=== PATIENT | female | born 1975 ===

== ENCOUNTER → 2020-03-18 10:54 | Outpatient (BNVA) | payer SELFPAY | PROVIDERS: Visit Provider Obstetrics & Gynecology | DX: Z76.89 Persons encountering health services in other specified circumstances (principal) ==

== ENCOUNTER → 2020-04-01 11:48 | Outpatient (BNVA) | payer OTHER, SELFPAY | PROVIDERS: Visit Provider Student in an Organized Health Care Education/Training Program | DX: Z76.89 Persons encountering health services in other specified circumstances (principal) ==

== ENCOUNTER → 2020-08-12 13:10 | Outpatient (BNVA) | payer OTHER, SELFPAY | PROVIDERS: PCP Internal Medicine; Visit Provider Obstetrics & Gynecology ==

== ENCOUNTER 2020-09-03 08:33 | Outpatient (REF) | payer OTHER, SELFPAY ==
--- NOTE | ~2020-09-03 | XR_ITS ---
EXAMINATION: XR CHEST CLINICAL INFORMATION: Preprocedure chest x-ray COMPARISON: Previous chest x-ray June 2012 TECHNIQUE: 2 views of the chest were obtained. FINDINGS: No significant abnormality is noted involving the heart, lungs, mediastinum, bony thorax or soft tissues. XR/XR chest 2V IMPRESSION: Unremarkable examination.
--- NOTE | 2020-09-03 08:44 | ECG_ITS ---
Test Reason : PRE-OP Z01.818 Blood Pressure : / mmHG Vent. Rate : 079 BPM Atrial Rate : 079 BPM P-R Int : 134 ms QRS Dur : 098 ms QT Int : 380 ms P-R-T Axes : 024 009 025 degrees QTc Int : 435 ms Normal sinus rhythm Normal ECG When compared with ECG of 03-JUL-2012 10:27, No significant change was found Referred By: Shandra Muro Electronically Signed By:REBEKAH PAUL MD
[2020-09-03 10:22] LABS: MANUAL DIFF FLAG NO
[2020-09-03 10:38] LABS: Basophils Percent Auto 0.7 % (0-2); Eosinophils Absolute Auto 0.1 X10*3/uL (0.0-0.4); Eosinophils Percent Auto 1.6 % (0-4); Hematocrit 36.4 % (37-47); Hemoglobin 11.2 g/dl (12.0-16.0); Imm Gran Abs Auto 0.02 X10*3/uL (0.00-0.03); Imm Gran Pct Auto 0.3 % (0.0-0.4); Lymphocytes Absolute Auto 1.9 X10*3/uL (1.2-4.9); Lymphocytes Percent Auto 30.5 % (20-40); Mean Corpuscular HGB Conc 30.8 g/dl (31.0-35.0); Mean Corpuscular Hemoglobin 24.6 pg (27.0-33.0); Mean Corpuscular Volume 79.8 fL (80-98); Monocytes Absolute Auto 0.6 X10*3/uL (0.1-1.2); Monocytes Percent Auto 10.5 % (2-11); Neutrophils Absolute Auto 3.4 X10*3/uL (2.0-8.3); Neutrophils Percent Auto 56.4 % (45-73); Platelet Count 372 X10*3/uL (160-400); Red Blood Count 4.56 X10*6/uL (4.20-5.50); Red Cell Distribution Width 22.8 % (11.0-16.0); White Blood Count 6.1 X10*3/uL (4.8-10.8)
[2020-09-03 10:40] LABS: Partial Thromboplastin Time 36.3 SEC (24.1-38.0)
[2020-09-03 10:46] LABS: Glucose Urine UA NEG (NEG); Leukocyte Esterase Urine NEG (NEG); Nitrite Urine NEG (NEG); Specific Gravity - Urine >= 1.030 (1.005-1.025); Urine Blood NEG (NEG); Urine Ketones NEG (NEG); Urine Protein NEG (NEG-TRACE)
[2020-09-03 10:49] LABS: Alanine Aminotransferase 17 U/L (0-31); Albumin Level 3.9 g/dL (3.5-5.0); Alkaline Phosphatase 63 U/L (39-117); Anion Gap 12 (12-20); Aspartate Amino Transferase 16 U/L (5-31); Bilirubin Total 0.4 mg/dL (0.0-1.0); Blood Urea Nitrogen 12 mg/dL (9-16); Calcium 8.8 mg/dL (8.4-10.2); Carbon Dioxide 25 mmol/L (22-29); Chloride 107 mmol/L (96-108); Estimated Glomerular Filt Rate > 60; Glucose Fasting 79 mg/dL (60-99); Sodium 140 mmol/L (135-145); Total Protein 6.6 g/dL (6.5-8.0)
[2020-09-03 10:53] LABS: Appearance Urine HAZY; Color Urine YELLOW
[2020-09-03 11:09] LABS: HIV AB/AG Nonreactive (Nonreactive); HIV Num 1 0.08 S/CO (0.00-0.99)
[2020-09-03 11:45] LABS: Estimated Average Glucose 91 mg/dL; Hemoglobin A1c % 4.8 %
[2020-09-03 12:35] LABS: HCG Quantitative < 2 mIU/mL
[2020-09-03 12:46] LABS: Thyroid Stimulating Hormone 0.91 uIU/mL (0.32-4.0)
[2020-09-04 08:41] LABS: Triiodothyronine T3 Total 110 ng/dL (76-181)
[2020-09-04 12:46] LABS: Absolute CD3 Count 1410 cells/uL (840-3060); Absolute CD4 Count 938 cells/uL (490-1740); Absolute CD8 Count 436 cells/uL (180-1170); Absolute Lymphocytes 1906 cells/uL (850-3900); CD4 CD8 Ratio 2.15 (0.86-5.00); Percent CD3 Cells 74 % (57-85); Percent CD4 Cells 49 % (30-61); Percent CD8 Cells 23 % (12-42)
== END 2020-09-03 08:34 | disposition home or self-care (01) ==
LOC: HO.LAB 08:33
PROVIDERS: PCP Internal Medicine; Visit Provider Internal Medicine
DX: Z01.818 Encounter for other preprocedural examination (principal)
CPT/HCPCS: 36415; 71046; 80053; 81003; 83036; 84436; 84443; 84480; 84702; 85025; 85610; 85730; 86359; 86360; 87389; 93005

== ENCOUNTER 2020-10-23 15:32 | Outpatient (REF) | payer OTHER, SELFPAY ==
--- NOTE | ~2020-10-23 | US_ITS ---
EXAMINATION: PELVIC ULTRASOUND CLINICAL INFORMATION: Leiomyoma of uterus COMPARISON: Previous pelvic ultrasounds most recent December 2019 TECHNIQUE: Transabdominal and transvaginal pelvic ultrasound was performed. Transvaginal exam was performed for better visualization of the uterus and ovaries. FINDINGS: The uterus is anteverted and measures 12.8 x 7.8 x 9.8 cm in dimension. There are 2 uterine fibroids. These measure 4.1 x 3.4 x 3 cm intramural or subserosal to the posterior lower uterine segment. This measured 3.7 x 3.1 x 2.9 cm on previous exam. The second fibroid measures 4.1 x 3.4 x 3 cm compared to 3.7 x 3.1 x 2.9 cm. This is intramural/submucosal in the high posterior uterine body. The endometrium is not well visualized secondary to fibroids. Endometrial thickness is estimated at 0.9 cm. The ovaries are normal-appearing. The right ovary measures 2.4 x 2 x 1.7 cm. The left ovary measures 3.2 x 1.9 x 2.6 cm. There is no fluid in the pelvis. US/US pelvic complete IMPRESSION: 2 uterine fibroids not appreciably changed from previous exam.
--- NOTE | ~2020-10-23 | US_ITS ---
EXAMINATION: PELVIC ULTRASOUND CLINICAL INFORMATION: Leiomyoma of uterus COMPARISON: Previous pelvic ultrasounds most recent December 2019 TECHNIQUE: Transabdominal and transvaginal pelvic ultrasound was performed. Transvaginal exam was performed for better visualization of the uterus and ovaries. FINDINGS: The uterus is anteverted and measures 12.8 x 7.8 x 9.8 cm in dimension. There are 2 uterine fibroids. These measure 4.1 x 3.4 x 3 cm intramural or subserosal to the posterior lower uterine segment. This measured 3.7 x 3.1 x 2.9 cm on previous exam. The second fibroid measures 4.1 x 3.4 x 3 cm compared to 3.7 x 3.1 x 2.9 cm. This is intramural/submucosal in the high posterior uterine body. The endometrium is not well visualized secondary to fibroids. Endometrial thickness is estimated at 0.9 cm. The ovaries are normal-appearing. The right ovary measures 2.4 x 2 x 1.7 cm. The left ovary measures 3.2 x 1.9 x 2.6 cm. There is no fluid in the pelvis. US/US transvaginal IMPRESSION: 2 uterine fibroids not appreciably changed from previous exam.
== END 2020-10-23 15:33 | disposition home or self-care (01) ==
LOC: HO.US 15:32
PROVIDERS: Visit Provider Obstetrics & Gynecology
DX: D25.9 Leiomyoma of uterus, unspecified (principal)
CPT/HCPCS: 76830; 76856

== ENCOUNTER → 2020-11-06 12:52 | Outpatient (BNVA) | payer OTHER, SELFPAY | PROVIDERS: PCP Internal Medicine; Visit Provider Obstetrics & Gynecology ==

== ENCOUNTER 2020-11-14 14:26 | Outpatient (REF) | payer OTHER, SELFPAY ==
[2020-11-14 14:49] LABS: MANUAL DIFF FLAG NO
[2020-11-14 14:52] LABS: Basophils Percent Auto 0.5 % (0-2); Eosinophils Absolute Auto 0.2 X10*3/uL (0.0-0.4); Eosinophils Percent Auto 2.3 % (0-4); Hematocrit 39.5 % (37-47); Hemoglobin 13.3 g/dl (12.0-16.0); Imm Gran Abs Auto 0.01 X10*3/uL (0.00-0.03); Imm Gran Pct Auto 0.1 % (0.0-0.4); Lymphocytes Absolute Auto 2.6 X10*3/uL (1.2-4.9); Lymphocytes Percent Auto 31.5 % (20-40); Mean Corpuscular HGB Conc 33.7 g/dl (31.0-35.0); Mean Corpuscular Hemoglobin 28.4 pg (27.0-33.0); Mean Corpuscular Volume 84.4 fL (80-98); Mean Platelet Volume 9.4 fL (9.4-12.3); Monocytes Absolute Auto 0.7 X10*3/uL (0.1-1.2); Monocytes Percent Auto 8.7 % (2-11); Neutrophils Absolute Auto 4.8 X10*3/uL (2.0-8.3); Neutrophils Percent Auto 56.9 % (45-73); Platelet Count 336 X10*3/uL (160-400); Red Blood Count 4.68 X10*6/uL (4.20-5.50); Red Cell Distribution Width 15.9 % (11.0-16.0); White Blood Count 8.4 X10*3/uL (4.8-10.8)
[2020-11-14 15:20] LABS: Alanine Aminotransferase 16 U/L (0-31); Alkaline Phosphatase 68 U/L (39-117); Anion Gap 10 (12-20); Aspartate Amino Transferase 18 U/L (5-31); Bilirubin Total 0.2 mg/dL (0.0-1.0); Blood Urea Nitrogen 11 mg/dL (9-16); Calcium 9.4 mg/dL (8.4-10.2); Carbon Dioxide 25 mmol/L (22-29); Chloride 108 mmol/L (96-108); Estimated Glomerular Filt Rate > 60; Glucose Random 105 mg/dL (60-115); Potassium 4.1 mmol/L (3.3-5.1); Sodium 139 mmol/L (135-145); Total Protein 6.8 g/dL (6.5-8.0)
[2020-11-14 15:42] LABS: HCG Quantitative < 2 mIU/mL; TSH reflex Free T4 0.93 uIU/mL (0.32-4.0)
== END 2020-11-14 14:27 | disposition home or self-care (01) ==
LOC: HO.LAB 14:26
PROVIDERS: Absent Provider Obstetrics & Gynecology; PCP Internal Medicine; Visit Provider Internal Medicine
DX: Z01.818 Encounter for other preprocedural examination (principal); N93.9 Abnormal uterine and vaginal bleeding, unspecified; D50.9 Iron deficiency anemia, unspecified
CPT/HCPCS: 36415; 80053; 84443; 84702; 85025; 85027

== ENCOUNTER 2020-11-25 14:40 | Outpatient (REF) | payer OTHER, SELFPAY ==
--- NOTE | 2020-11-25 14:45 | ECG_ITS ---
Test Reason : PREOP Blood Pressure : / mmHG Vent. Rate : 076 BPM Atrial Rate : 076 BPM P-R Int : 132 ms QRS Dur : 088 ms QT Int : 380 ms P-R-T Axes : 028 -03 016 degrees QTc Int : 427 ms Normal sinus rhythm Normal ECG When compared with ECG of 03-SEP-2020 08:52, No significant change was found Referred By: Donato Flynn Electronically Signed By:REBEKAH PAUL MD
[2020-11-25 15:25] LABS: MANUAL DIFF FLAG NO
[2020-11-25 15:28] LABS: Basophils Absolute Auto 0.1 X10*3/uL (0.0-0.2); Basophils Percent Auto 0.6 % (0-2); Eosinophils Absolute Auto 0.2 X10*3/uL (0.0-0.4); Eosinophils Percent Auto 1.6 % (0-4); Hematocrit 39.1 % (37-47); Hemoglobin 13.1 g/dl (12.0-16.0); Imm Gran Abs Auto 0.05 X10*3/uL (0.00-0.03); Imm Gran Pct Auto 0.5 % (0.0-0.4); Lymphocytes Absolute Auto 3.1 X10*3/uL (1.2-4.9); Mean Corpuscular HGB Conc 33.5 g/dl (31.0-35.0); Mean Corpuscular Hemoglobin 28.7 pg (27.0-33.0); Mean Corpuscular Volume 85.7 fL (80-98); Mean Platelet Volume 9.8 fL (9.4-12.3); Monocytes Absolute Auto 0.9 X10*3/uL (0.1-1.2); Monocytes Percent Auto 9.5 % (2-11); Neutrophils Absolute Auto 5.1 X10*3/uL (2.0-8.3); Neutrophils Percent Auto 54.8 % (45-73); Platelet Count 356 X10*3/uL (160-400); Red Blood Count 4.56 X10*6/uL (4.20-5.50); Red Cell Distribution Width 14.8 % (11.0-16.0); White Blood Count 9.3 X10*3/uL (4.8-10.8)
[2020-11-25 15:33] LABS: Prothrombin Time 11.2 SEC (9.9-13.0)
[2020-11-25 15:36] LABS: Partial Thromboplastin Time 35.7 SEC (24.1-38.0)
[2020-11-25 15:46] LABS: Alanine Aminotransferase 32 U/L (0-31); Albumin Level 4.1 g/dL (3.5-5.0); Alkaline Phosphatase 67 U/L (39-117); Anion Gap 10 (12-20); Aspartate Amino Transferase 25 U/L (5-31); Bilirubin Total 0.3 mg/dL (0.0-1.0); Blood Urea Nitrogen 15 mg/dL (9-16); Calcium 9.5 mg/dL (8.4-10.2); Carbon Dioxide 27 mmol/L (22-29); Chloride 106 mmol/L (96-108); Estimated Glomerular Filt Rate > 60; Glucose Random 92 mg/dL (60-115); Potassium 4.4 mmol/L (3.3-5.1); Sodium 139 mmol/L (135-145)
[2020-11-26 08:14] LABS: HIV AB/AG Nonreactive (Nonreactive); HIV Num 1 0.06 S/CO (0.00-0.99)
== END 2020-11-25 14:41 | disposition home or self-care (01) ==
LOC: HO.LAB 14:40
PROVIDERS: PCP Internal Medicine; Visit Provider Internal Medicine
DX: Z01.818 Encounter for other preprocedural examination (principal)
CPT/HCPCS: 36415; 80053; 85025; 85610; 85730; 87389; 93005

== ENCOUNTER 2020-12-30 14:30 | Outpatient (REF) | payer OTHER, SELFPAY ==
[2020-12-31 01:26] LABS: CT PCR NOT DETECTED (Not Detect.); NG PCR NOT DETECTED (Not Detect.)
[2021-01-01 16:37] LABS: HPV mRNA E6/E7 rflx Not Detected (Not Detected)
== END 2020-12-30 14:31 | disposition home or self-care (01) ==
LOC: HO.LAB 14:30
PROVIDERS: PCP Internal Medicine; Visit Provider Obstetrics & Gynecology
DX: Z01.411 Encounter for gynecological examination (general) (routine) with abnormal findings (principal); Z11.51 Encounter for screening for human papillomavirus (HPV); Z11.3 Encounter for screening for infections with a predominantly sexual mode of transmission; N92.1 Excessive and frequent menstruation with irregular cycle
CPT/HCPCS: 58100; 87491; 87591; 87624; 88142; 88305

== ENCOUNTER → 2021-01-14 11:40 | Outpatient (BNVA) | payer OTHER, SELFPAY | PROVIDERS: PCP Internal Medicine; Visit Provider Obstetrics & Gynecology ==

== ENCOUNTER → 2021-03-23 15:41 | Outpatient (BNVA) | payer OTHER, SELFPAY | PROVIDERS: PCP Internal Medicine; Visit Provider Obstetrics & Gynecology ==

== ENCOUNTER 2021-06-30 11:07 | Outpatient (REF) | payer OTHER, SELFPAY ==
[2021-06-30 11:33] LABS: MANUAL DIFF FLAG NO
[2021-06-30 12:23] LABS: Basophils Percent Auto 0.5 % (0-2); Eosinophils Absolute Auto 0.1 X10*3/uL (0.0-0.4); Eosinophils Percent Auto 1.6 % (0-4); Hematocrit 36.8 % (37.0-47.0); Hemoglobin 11.9 g/dl (12.0-16.0); Imm Gran Abs Auto 0.03 X10*3/uL (0.00-0.03); Imm Gran Pct Auto 0.5 % (0.0-0.4); Lymphocytes Absolute Auto 2.1 X10*3/uL (1.2-4.9); Lymphocytes Percent Auto 33.9 % (20-40); Mean Corpuscular HGB Conc 32.3 g/dl (31.0-35.0); Mean Corpuscular Hemoglobin 28.5 pg (27.0-33.0); Mean Corpuscular Volume 88.2 fL (80.0-98.0); Mean Platelet Volume 10.2 fL (9.4-12.3); Monocytes Absolute Auto 0.6 X10*3/uL (0.1-1.2); Neutrophils Absolute Auto 3.4 x10*3/uL (2.0-8.3); Neutrophils Percent Auto 54.5 % (45-73); Platelet Count 322 X10*3/uL (160-400); Red Blood Count 4.17 X10*6/uL (4.20-5.50); Red Cell Distribution Width 14.5 % (11.0-16.0); White Blood Count 6.2 X10*3/uL (4.8-10.8)
[2021-06-30 13:05] LABS: Appearance Urine HAZY; Color Urine YELLOW; Glucose Urine UA NEG (NEG); Leukocyte Esterase Urine NEG (NEG); Nitrite Urine NEG (NEG); Specific Gravity - Urine 1.025 (1.005-1.025); UACC Culture Trigger NO; Urine Blood 1+ (NEG); Urine Ketones NEG (NEG); Urine Protein NEG (NEG-TRACE)
[2021-06-30 13:05] LABS: Alanine Aminotransferase 18 U/L (0-31); Albumin Level 3.8 g/dL (3.5-5.0); Alkaline Phosphatase 65 U/L (39-117); Anion Gap 10 (12-20); Aspartate Amino Transferase 15 U/L (5-31); Bilirubin Total 0.4 mg/dL (0.0-1.0); Blood Urea Nitrogen 13 mg/dL (9-16); Calcium 9.4 mg/dL (8.4-10.2); Carbon Dioxide 25 mmol/L (22-29); Chloride 107 mmol/L (96-108); Cholesterol 155 mg/dL; Estimated Glomerular Filt Rate > 60; Glucose Fasting 88 mg/dL (60-99); HDL Cholesterol 39 mg/dL; Iron 52 mcg/dL (30-160); LDL Cholesterol Calculated 92 mg/dl; Potassium 4.2 mmol/L (3.3-5.1); Sodium 138 mmol/L (135-145); Total Protein 6.6 g/dL (6.5-8.0); Triglycerides 122 mg/dL
[2021-06-30 13:07] LABS: Erythrocyte Sedimentation Rate 11 MM/HR (0-20)
[2021-06-30 13:10] LABS: TSH reflex Free T4 0.88 uIU/mL (0.32-4.0)
[2021-06-30 13:35] LABS: Percent Iron Saturation 16 % (15-50); Total Iron Binding Capacity 327 mcg/dL (228-428); Unsaturated Iron Binding 275 ug/dL
[2021-06-30 14:16] LABS: Bacteria Urine TRACE /LPF; Mucus Urine 2+ /LPF; Squamous Epithelial Cell Urine 1+ /LPF; WBC Urine 0-2 /HPF (0-4)
== END 2021-06-30 11:08 | disposition home or self-care (01) ==
LOC: HO.LAB 11:07
PROVIDERS: PCP Internal Medicine; Visit Provider Internal Medicine
DX: Z00.00 Encounter for general adult medical examination without abnormal findings (principal); E55.9 Vitamin D deficiency, unspecified; D50.9 Iron deficiency anemia, unspecified; M79.7 Fibromyalgia
CPT/HCPCS: 36415; 80053; 80061; 81001; 81003; 82306; 83540; 84443; 85025; 85652

== ENCOUNTER 2021-07-06 09:52 | Outpatient (REF) | payer OTHER, SELFPAY ==
[2021-07-06 15:11] LABS: CT PCR NOT DETECTED (Not Detect.); NG PCR NOT DETECTED (Not Detect.)
[2021-07-07 13:02] LABS: BV Int Neg Control Negative (Negative); BV Int Pos Control Positive (Positive)
== END 2021-07-06 09:53 | disposition home or self-care (01) ==
LOC: HO.LAB 09:52
PROVIDERS: PCP Internal Medicine; Visit Provider Obstetrics & Gynecology
DX: N76.0 Acute vaginitis (principal); B96.89 Other specified bacterial agents as the cause of diseases classified elsewhere; D25.9 Leiomyoma of uterus, unspecified
CPT/HCPCS: 87480; 87491; 87510; 87591; 87660; 99212

== ENCOUNTER 2021-08-18 14:43 | Outpatient (REF) | payer OTHER, SELFPAY ==
--- NOTE | 2021-08-18 15:01 | ECG_ITS ---
Test Reason : preop Blood Pressure : / mmHG Vent. Rate : 074 BPM Atrial Rate : 074 BPM P-R Int : 142 ms QRS Dur : 090 ms QT Int : 396 ms P-R-T Axes : 024 008 018 degrees QTc Int : 439 ms Normal sinus rhythm Normal ECG When compared with ECG of 25-NOV-2020 14:48, No significant change was found Referred By: Donato Flynn Electronically Signed By:REBEKAH PAUL MD
[2021-08-18 15:02] LABS: MANUAL DIFF FLAG NO
[2021-08-18 15:31] LABS: Basophils Percent Auto 0.5 % (0-2); Eosinophils Absolute Auto 0.1 X10*3/uL (0.0-0.4); Eosinophils Percent Auto 1.7 % (0-4); Hematocrit 36.9 % (37.0-47.0); Hemoglobin 12.7 g/dl (12.0-16.0); Imm Gran Abs Auto 0.03 X10*3/uL (0.00-0.03); Imm Gran Pct Auto 0.4 % (0.0-0.4); Lymphocytes Absolute Auto 2.1 X10*3/uL (1.2-4.9); Lymphocytes Percent Auto 25.5 % (20-40); Mean Corpuscular HGB Conc 34.4 g/dl (31.0-35.0); Mean Corpuscular Hemoglobin 29.5 pg (27.0-33.0); Mean Corpuscular Volume 85.8 fL (80.0-98.0); Mean Platelet Volume 9.8 fL (9.4-12.3); Monocytes Absolute Auto 0.7 X10*3/uL (0.1-1.2); Monocytes Percent Auto 8.5 % (2-11); Neutrophils Absolute Auto 5.3 x10*3/uL (2.0-8.3); Neutrophils Percent Auto 63.4 % (45-73); Platelet Count 344 X10*3/uL (160-400); Red Cell Distribution Width 14.7 % (11.0-16.0); White Blood Count 8.3 X10*3/uL (4.8-10.8)
[2021-08-18 15:37] LABS: INTERNATIONAL NORM RATIO 1.1 (0.9-1.1)
[2021-08-18 15:40] LABS: Partial Thromboplastin Time 36.8 SEC (24.1-38.0)
[2021-08-18 16:02] LABS: Alanine Aminotransferase 18 U/L (0-31); Albumin Level 4.1 g/dL (3.5-5.0); Alkaline Phosphatase 75 U/L (39-117); Anion Gap 11 (12-20); Aspartate Amino Transferase 18 U/L (5-31); Bilirubin Total 0.4 mg/dL (0.0-1.0); Blood Urea Nitrogen 14 mg/dL (9-16); Calcium 9.5 mg/dL (8.4-10.2); Carbon Dioxide 24 mmol/L (22-29); Chloride 106 mmol/L (96-108); Estimated Glomerular Filt Rate > 60; Glucose Random 80 mg/dL (60-115); Potassium 4.1 mmol/L (3.3-5.1); Sodium 137 mmol/L (135-145); Total Protein 7.3 g/dL (6.5-8.0)
[2021-08-18 16:09] LABS: HCG Quantitative < 2 mIU/mL
[2021-08-18 16:16] LABS: Appearance Urine HAZY; Color Urine YELLOW; Glucose Urine UA NEG (NEG); Leukocyte Esterase Urine NEG (NEG); Nitrite Urine NEG (NEG); PH 6.5 (5.0-8.0); Specific Gravity - Urine 1.015 (1.005-1.025); UACC Culture Trigger NO; Urine Blood 3+ (NEG); Urine Ketones NEG (NEG); Urine Protein NEG (NEG-TRACE)
[2021-08-18 16:26] LABS: Bacteria Urine 1+ /LPF; Squamous Epithelial Cell Urine 1+ /LPF; WBC Urine 0 /HPF (0-4)
[2021-08-18 16:27] LABS: RBC Urine 50-75 /HPF (0)
[2021-08-19 07:59] LABS: HBsAGNum1 0.15 S/CO (0.00-0.99); HIV AB/AG Nonreactive (Nonreactive); HIV Num 1 0.08 S/CO (0.00-0.99); Hepatitis B Surface Antigen Negative (Negative); ~HepC Num1 0.09 S/CO (0.00-0.79); ~Hepatitis C Antibody Nonreactive (Nonreactive)
[2021-08-19 08:12] LABS: Syphilis Screen Nonreactive (Nonreactive)
== END 2021-08-18 14:44 | disposition home or self-care (01) ==
LOC: HO.LAB 14:43
PROVIDERS: Obstetrics & Gynecology; PCP Internal Medicine; Visit Provider Internal Medicine
DX: Z01.818 Encounter for other preprocedural examination (principal); Z11.4 Encounter for screening for human immunodeficiency virus [HIV]; I10 Essential (primary) hypertension; B96.89 Other specified bacterial agents as the cause of diseases classified elsewhere; N76.0 Acute vaginitis
CPT/HCPCS: 36415; 80053; 81001; 84702; 85025; 85610; 85730; 86780; 86803; 87340; 87389; 93005

== ENCOUNTER 2021-08-20 11:43 | Outpatient (REF) | payer OTHER, SELFPAY ==
--- NOTE | ~2021-08-20 | US_ITS ---
EXAMINATION: US PELVIS CLINICAL INFORMATION: Leiomyoma of the uterus. COMPARISON: None TECHNIQUE: Ultrasound of the pelvis is performed using both transabdominal and transvaginal transducers along with Doppler. Transvaginal imaging is performed due to inadequate visualization transabdominally. FINDINGS: Uterus: The uterus is anteverted, anteflexed and measures 12.1 x 7.8 x 11.0 cm. The double wall endometrial thickness is 0.3 cm. It is difficult to visualize due to fibroids. The uterus is smooth in contour and has normal myometrial echogenicity. There are 2 hypoechoic lesions: 1. Lesion in the lower posterior body of the uterus measures 2.9 x 2.9 x 3.4 cm. Previously, it measured 4.1 x 3.4 x 3.0 cm. 2. Lesion in the upper posterior body of the uterus almost at the fundus. It measures 7.5 x 6.9 x 8.0 cm. Previously it measured 6.6 x 6.3 x 6.7 cm. There are small nabothian cysts in the cervix. Adnexa: Both ovaries are not visualized. There is no free fluid in the cul-de-sac. US/US pelvic and transvaginal IMPRESSION: 2 uterine fibroids. Small nabothian cysts in the cervix. The ovaries are not visualized.
== END 2021-08-20 11:44 | disposition home or self-care (01) ==
LOC: HO.US 11:43
PROVIDERS: PCP Internal Medicine; Visit Provider Obstetrics & Gynecology
DX: D25.9 Leiomyoma of uterus, unspecified (principal)
CPT/HCPCS: 76830; 76856

== ENCOUNTER → 2021-08-31 16:04 | Outpatient (BNVA) | payer OTHER, SELFPAY | PROVIDERS: PCP Internal Medicine; Visit Provider Obstetrics & Gynecology | DX: D25.9 Leiomyoma of uterus, unspecified (principal) ==

== ENCOUNTER 2022-05-25 09:34 | Outpatient (REF) | payer OTHER, SELFPAY ==
--- NOTE | ~2022-05-25 | US_ITS ---
EXAMINATION: US ABDOMEN LIMITED CLINICAL INFORMATION: Umbilical hernia without obstruction or gangrene. COMPARISON: None TECHNIQUE: Real-time imaging of the the umbilical region in the area of concern as indicated by the patient FINDINGS: The patient directed the meat supervisor to the area of concern. There is no hernia. US/US abdomen limited IMPRESSION: No hernia demonstrated.
== END 2022-05-25 09:35 | disposition home or self-care (01) ==
LOC: HO.US 09:34
PROVIDERS: Visit Provider Nurse Practitioner Family
DX: K42.9 Umbilical hernia without obstruction or gangrene (principal)
CPT/HCPCS: 76705

== ENCOUNTER 2023-05-04 13:50 | Outpatient (AMB) | payer OTHER, SELFPAY ==
[2023-05-04 13:52] VITALS: BP 116/80; PULSE 87; O2SAT 96; BMI 29.7
--- NOTE | 2023-05-04 13:52 | MHC.PC.OV ---
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 Required: No Accompanied by: Self / Same As Patient Allergies pregabalin Allergy (Unknown, Verified 05/04/23 14:20) visual hallucinations Medication List - Last Reconciled 05/08/23 by Donato Flynn MD ferrous sulfate 325 mg PO BID folic acid 1 mg PO DAILY gabapentin 300 mg PO TID 30 days ibuprofen 800 mg PO Q6H PRN 30 days sumatriptan succinate 25 mg PO Q2-4H PRN 30 days tramadol 50 mg PO Q8H PRN 30 days triazolam 0.25 mg PO BEDTIME PRN 5 days Tobacco use date assessed: 05/04/23 Dental Screening Dental Screen Date: 05/04/23 Did you have a dental visit in the last 12 months?: Yes Did you have a dental problem in the last 6 months where you did not have access to dental care?: No Was dental information given to patient?: Patient has dentist HPI pe HPI Details Patient comes in today for her annual physical examination States that she has been experiencing increasing pain over both of her legs over the past few months Recalls that she had some nerve test done in the past and was diagnosed with neuropathy but cannot remember exactly where and when this test was done Is wondering if her recent symptoms is still related to or due to her neuropathy and is looking for anything to help provide her with some relief Adds that her right wrist pain and right hand pain and numbness have been getting worse lately Recalls that she had the same symptoms on her left wrist and hand a few years ago and that her symptoms improved with carpal tunnel surgery done by Dr. Jackson at [facility] Would like to get a referral to see Dr. Jackson for her right wrist now Adds that she continues to experience diffuse muscle aches and pains and feels that her symptoms have gotten a lot worse recently with the cold winter She denies any headaches or dizziness Denies any chest pains, no SOB No nausea/vomiting, no abdominal pain No change in bowel habits noted She denies any acute urinary symptoms States that she is up-to-date with her annual mammogram (gets them done at [facility]) and with her annual gynecology exam Had a laparoscopic hysterectomy done at [facility] last year in May 2022 and she reportedly no longer has to keep up with annual pap smears Has never had a screening colonoscopy done in the past [facility] Medical History (Updated 05/04/23 @ 14:33 by Donato Flynn MD) Injury of great toenail Renal calculus, bilateral Obesity (BMI 30-39.9) Anemia Nephronophthisis-like nepropathy type 1 Migraines Fibromyalgia Surgical History (Updated 05/05/23 @ 12:48 by Donato Flynn MD) Hx of bilateral salpingectomy (~05/27/22) History of laparoscopy-assisted vaginal hysterectomy (~05/27/22) History of nephrolithiasis History of tubal ligation History of carpal tunnel release History of abdominoplasty Family History Father Cirrhosis Liver failure Mother Hyperlipidemia Hypertension Maternal Grandfather CVD (cardiovascular disease) Social History Housing: House Alcohol intake: current Alcohol intake frequency: holidays/special occasions only Patient Tobacco Use Status: Never used Tobacco e-Cigarette/Vaping Use: Never Used Second Hand Smoke Exposure: No service: No Current occupational status: employed 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 1. Little interest or pleasure in doing things: several days 2. Feeling down, depressed, or hopeless: several days 3. Trouble falling or staying asleep, or sleeping too much: not at all 4. Feeling tired or having little energy: not at all 5. Poor appetite or overeating: not at all 6. Feeling bad about yourself - or that you are a failure or have let yourself or your family down: not at all 7. Trouble concentrating on things, such as reading the newspaper or watching television: not at all 8. Moving or speaking so slowly that other people could have noticed. Or the opposite - being so fidgety or restless that you have been moving around a lot more than usual: not at all 9. Thoughts that you would be better off or of hurting yourself in some way: not at all Total score: 2 Depression Screening Interpretation: Negative Depression Screening Done: Yes 61881 - PHQ-9 Billing: Yes Source: Developed by Drs. Ja Pop, Virgie Oneill, Ty Sanchez and colleagues, with an educational robert from [employer]. Thrive Questionnaire Date Thrive assessed: 05/04/23 I am a: Patient What is your living situation today?: I have a steady place to live Within the past 12 months, did the food you bought not last and you didn't have the money to get more?: Never true Within the past 12 months, did you worry whether your food would run out before you got money to buy more?: Never true Do you have trouble paying for medicines?: No Do you have trouble getting transportation to medical appointments?: No Do you have trouble paying your heating and electricity bill?: No Do you have trouble taking care of your child, family member or friend?: No Do you have trouble with day-to-day activities such as bathing, preparing meals, shopping, managing finances, etc.?: No Are you currently unemployed and looking for a job?: No Are you interested in more education?: No Please select the resources that you would like help with: None Currently or been in a relationship where the following occur: no concerns reported THRIVE Score: 0 AUDIT C Alcohol Use Questionnaire (AUDIT-C) 1. How often do you have a drink containing alcohol?: Monthly or less 2. How many drinks containing alcohol do you have on a typical day when you are drinking?: 1 or 2 3. How often do you have six or more drinks on one occasion?: Never Total Score: 1 Score Reviewed/Action Taken: Yes SHAMIKA-7 AMB Questionnaire SHAMIKA-7 Date SHAMIKA - 7 assessed: 05/04/23 Feeling nervous, anxious, or on edge: 1 = Several days Not being able to stop or control worryin = Several days Worrying too much about different things: 0 = Not at all Trouble relaxin = Not at all Being so restless that it is hard to sit still: 0 = Not at all Becoming easily annoyed or irritable: 0 = Not at all Feeling afraid as if something awful might happen: 0 = Not at all Total SHAMIKA-7 score (0-4 normal; 5-9 mild; 10-14 moderate; 15-21 severe): 2 Source: Developed by Drs. Ja Pop, Virgie Oneill, Ty Sanchez and colleagues, with an educational robert from [employer]. Review of Systems Const Denies chills, Reports fatigue, Denies fever(s), Denies headache(s) and Denies malaise Eyes Denies blurry vision, Denies change in vision, Denies irritation and Denies itchy eyes ENT Denies dysphagia, Denies dizziness, Denies otalgia, Denies headache(s), Denies nasal congestion, Denies neck pain, Denies odynophagia, Denies sinus pain and Denies sore throat Card Denies chest pain, Denies rapid heart rate, Denies irregular heart rhythm, Denies palpitations and Denies dyspnea Resp Denies chest congestion, Denies cough, Denies dyspnea and Denies wheezing GI Denies abdominal pain, Denies bloating, Denies constipation, Denies dysphagia, Denies heartburn, Denies diarrhea, Denies nausea, Denies odynophagia and Denies vomiting Denies hematuria, Denies urinary frequency, Denies dysuria, Denies urinary incontinence and Denies urinary urgency Musc Denies back pain, Reports myalgias (diffuse), Reports arthralgias (involving multiple joints, including her right wrist - increasing lately), Denies joint swelling, Denies muscle weakness, Denies neck pain, Reports numbness (on and off in the right hand) and Reports tingling (in the right hand, on and off) Skin/Breast Denies breast pain, Denies breast mass, Denies change in pigmentation, Denies lesions, Denies rash and Denies unusual bruising Neuro Details: increasing pain frequently over both lower extremities Denies dizziness, Denies headache(s), Reports numbness (on and off in the right hand) and Reports tingling (in the right hand, on and off) Psych Denies anxiety and Denies depression Endo Reports fatigue and Denies palpitations Adonay/Lymph Denies easy bruising Aller/Immun Denies itchy eyes and Denies wheezing Physical exam (Primary Care) Vital Signs: Last Vital Signs Pulse 87 05/04/23 13:52 BP 116/80 05/04/23 13:52 Pulse Ox 96 05/04/23 13:52 Oxygen Delivery Method Room Air 05/04/23 13:52 BMI result Body Mass Index 29.7 Tobacco/Smoking Status: Tobacco use Status Tobacco use date assessed 05/04/23 05/04/23 13:55 Patient Tobacco Use Status Never used Tobacco 05/04/23 13:55 e-Cigarette/Vaping Use Never Used 05/04/23 13:55 PHQ-9: PHQ-9 Score PHQ-9: Total score 2 05/05/23 12:44 Depression Screening Interpretation: Negative Thrive Assessment: Date of Thrive Assessment Date Thrive assessed 05/04/23 05/04/23 13:55 Currently or been in a relationship where the following occur: no concerns reported Const General: no acute distress, alert and awake Orientation/consciousness: patient oriented x3 HENMT Head: Yes normocephalic and Yes atraumatic Ears: external ears normal, TM's normal bilaterally and EAC's normal General nose exam: No nasal discharge present Face and sinus: Yes normal facial exam and Yes sinuses nontender Teeth and gingiva: dentition normal Throat: Yes posterior oropharynx normal and Yes tonsils normal (no TP congestion) Eyes Eyelids: Yes eyelids normal Conjunctivae: conjunctivae normal Pupils: Equal, round and reactive pupils present EOM: EOMs intact bilaterally Neck Neck: Yes no lymphadenopathy and Yes supple Thyroid: Thyroid normal Resp Auscultation: clear to auscultation bilaterally, no rales and no wheezes Cardio Rate: regular rate Rhythm: regular rhythm Heart sounds: no murmurs GI Palpation (GI): Soft to palpation, nontender and No hepatosplenomegaly present Auscultation: normal bowel sounds General: Yes no CVA tenderness Back/Spine/Pelvis Back: no CVA tenderness Thoracic/Lumbar Spine: thoracic and lumbar spine normal to inspection Skin Lesions: no lesions Rashes: no rashes Neuro General: patient oriented x3, moves all extremities, no focal motor deficits and CN's II-XI intact bilaterally Cranial nerves: Yes Equal, round and reactive pupils present Cognition (Neuro): normal cognition Gait exam (Neuro): Normal gait present Extrem General: Yes no clubbing, cyanosis or edema Right upper extremity: shoulder/upper arm Details: tenderness (diffusely over the scapular area) and wrist Details: tenderness; Tinel's positive Left upper extremity: shoulder/upper arm Details: tenderness (diffusely over the scapular areas) Assessment and Plan Assessment & Plan (1) Annual physical exam: Code(s): Z00.00 - Encounter for general adult medical examination without abnormal findings Plan: Check labs (2) Carpal tunnel syndrome of right wrist: Code(s): G56.01 - Carpal tunnel syndrome, right upper limb Plan: Per patient request, will refer her to Dr. Jackson at [place] for consideration for carpal tunnel release/surgery Had her left carpal tunnel surgery done by Dr. Jackson back in 2017 (3) Bilateral lower extremity pain: Code(s): M79.604 - Pain in right leg; M79.605 - Pain in left leg Plan: Suspect neuropathy as a likely source of her recent increasing leg pain Patient vaguely recalls getting some nerve test done on her legs years ago but could not locate any of these in her records here at [facility]; have advised that I could only find 2 separate NCVs done on her upper extremities years ago wherein she was diagnosed with carpal tunnel syndrome Will send her for NCV & EMG of the lower extremities for further evaluation (4) Fibromyalgia: Code(s): M79.7 - Fibromyalgia Plan: Has been seen by Dr. De La Torre here at [facility] years ago and is now requesting for a referral to go [facility] and see rheumatology there as she works in [place] and they would be closer to get to for her there - referral done (5) Arthralgia: Comment: involving multiple joints Code(s): M25.50 - Pain in unspecified joint Qualifiers: Joint pain location: unspecified Qualified Code(s): M25.50 - Pain in unspecified joint Plan: Will send her for some labs for further evaluation Will also refer her to rheumatology for further evaluation and management (6) Anemia: Code(s): D64.9 - Anemia, unspecified Qualifiers: Anemia type: iron deficiency Iron deficiency anemia type: unspecified iron deficiency Qualified Code(s): D50.9 - Iron deficiency anemia, unspecified Plan: Continue Ferrous Sulfate 325 mg BID Will recheck her CBC for follow up (7) Migraines: Code(s): G43.909 - Migraine, unspecified, not intractable, without status migrainosus Qualifiers: Migraine type: chronic without aura Status migrainosus presence: without status migrainosus Intractability: not intractable Qualified Code(s): G43.709 - Chronic migraine without aura, not intractable, without status migrainosus Plan: Stable Continue Sumatriptan 25 mg PRN (8) Renal calculus, bilateral: Code(s): N20.0 - Calculus of kidney Plan: Retroperitoneal US done at [facility] on 05/20/21 revealed a tiny 0.2 cm calculus in the midpole of the right kidney and 2 non-obstructing left-sided renal calculiy, the largest in the upper pole measuring 0.8 cm Follow up with urology in [place] (Dr. Carlson) as scheduled (9) Uterine myoma: Code(s): D25.9 - Leiomyoma of uterus, unspecified Qualifiers: Uterine leiomyoma location: unspecified location Qualified Code(s): D25.9 - Leiomyoma of uterus, unspecified Plan: Follow up with [facility]-[employer] [employer] as scheduled (10) Obesity (BMI 30-39.9): Code(s): E66.9 - Obesity, unspecified Plan: Reinforced diet/exercise as tolerated/lose weight (11) Colon cancer screening: Code(s): Z12.11 - Encounter for screening for malignant neoplasm of colon Plan: Will refer patient to GI for screening colonoscopy Plan Follow up in 4 months Orders: Orders NE nerve conduction velocity 05/04/23 M79.604 - Pain in right leg, M79.605 - Pain in left leg Comprehensive [place]. Panel Fast 05/04/23 M25.50 - Pain in unspecified joint, Z00.00 - Encounter for general adult medical examination without abnormal findings TSH reflex Free T4 05/04/23 E78.00 - Pure hypercholesterolemia, unspecified, Z00.00 - Encounter for general adult medical examination without abnormal findings Vitamin D 25-OH Total 05/04/23 E55.9 - Vitamin D deficiency, unspecified, Z00.00 - Encounter for general adult medical examination without abnormal findings EPIFANIO Reflex Titer and Pattern 05/04/23 M25.50 - Pain in unspecified joint C Reactive Protein 05/04/23 M25.50 - Pain in unspecified joint Rheumatoid Factor 05/04/23 M25.50 - Pain in unspecified joint Vitamin B12 and Folate 05/04/23 E53.8 - Deficiency of other specified B group vitamins NE electromyogram (EMG) 05/04/23 M79.604 - Pain in right leg, M79.605 - Pain in left leg Complete Blood Count Auto Diff 05/04/23 D64.9 - Anemia, unspecified, Z00.00 - Encounter for general adult medical examination without abnormal findings Lipid Panel 05/04/23 E78.00 - Pure hypercholesterolemia, unspecified, Z00.00 - Encounter for general adult medical examination without abnormal findings UA CC w/rflx Micro + Cult 05/04/23 R30.0 - Dysuria, Z00.00 - Encounter for general adult medical examination without abnormal findings MM tomosynthesis screening BI 05/04/23 Z12.31 - Encounter for screening mammogram for malignant neoplasm of breast Erythrocyte Sedimentation Rate 05/04/23 M25.50 - Pain in unspecified joint, M79.7 - Fibromyalgia Lyme IgG/IgM w/reflex to WB 05/04/23 M25.50 - Pain in unspecified joint, W57.XXXA - Bitten or stung by nonvenomous insect and other nonvenomous arthropods, initial encounter Referrals Orthopedics Referral G56.01 - Carpal tunnel syndrome, right upper limb Rheumatology Referral M25.50 - Pain in unspecified joint, M79.7 - Fibromyalgia Gastroenterology Referral Z12.11 - Encounter for screening for malignant neoplasm of colon Coding Level of Care Code Est Pt Prev Care 40-64y([id number]) Diagnoses Annual physical exam Z00.00 Carpal tunnel syndrome of right wrist G56.01 Bilateral lower extremity pain M79.604; M79.605 Fibromyalgia M79.7 Arthralgia, unspecified joint M25.50 Joint pain location: unspecified Iron deficiency anemia, unspecified iron deficiency anemia type D50.9 Anemia type: iron deficiency Iron deficiency anemia type: unspecified iron deficiency Chronic migraine without aura without status migrainosus, not intractable G43.709 Migraine type: chronic without aura Status migrainosus presence: without status migrainosus Intractability: not intractable Renal calculus, bilateral N20.0 Uterine leiomyoma, unspecified location D25.9 Uterine leiomyoma location: unspecified location Obesity (BMI 30-39.9) E66.9 Colon cancer screening Z12.11
== END 2023-05-04 14:29 | disposition home or self-care (01) ==
PROVIDERS: PCP Internal Medicine; Visit Provider Internal Medicine
DX: Z00.00 Encounter for general adult medical examination without abnormal findings (principal); G56.01 Carpal tunnel syndrome, right upper limb; E66.9 Obesity, unspecified; Z68.29 Body mass index [BMI] 29.0-29.9, adult; M79.604 Pain in right leg; M79.605 Pain in left leg; M25.50 Pain in unspecified joint; M79.7 Fibromyalgia; D50.9 Iron deficiency anemia, unspecified; G43.709 Chronic migraine without aura, not intractable, without status migrainosus; N20.0 Calculus of kidney; D25.9 Leiomyoma of uterus, unspecified
CPT/HCPCS: 99396

== ENCOUNTER 2023-05-09 13:57 | Outpatient (AMB) | payer OTHER, SELFPAY ==
[2023-05-09 14:59] VITALS: BP 114/70; BMI 30.2
--- NOTE | 2023-05-09 14:59 | MHC.OFFVIS ---
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 No complaints. Last Pap/HPV was in 01/06 the patient is status post hysterectomy for myomas Last Mammogram was more than a year ago at [facility] and was negative according to the patient No previous colonoscopy, the patient has been referred to GI by her PCP [facility] Medical History Injury of great toenail Renal calculus, bilateral Obesity (BMI 30-39.9) Anemia Nephronophthisis-like nepropathy type 1 Migraines Fibromyalgia Surgical History Hx of bilateral salpingectomy (~05/27/22) History of laparoscopy-assisted vaginal hysterectomy (~05/27/22) History of nephrolithiasis History of tubal ligation History of carpal tunnel release History of abdominoplasty Family History Father Cirrhosis Liver failure Mother Hyperlipidemia Hypertension Maternal Grandfather CVD (cardiovascular disease) Social History Housing: House Alcohol intake: current Alcohol intake frequency: holidays/special occasions only Patient Tobacco Use Status: Never used Tobacco e-Cigarette/Vaping Use: Never Used Second Hand Smoke Exposure: No service: No Current occupational status: employed 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 Cognitive needs: No Hearing needs: No Vision needs: Yes Female Reproductive History Menstrual Age of Menarche: 13 Menopause type: surgical Total pregnancies: 3 Full term: 2 Number of Living Children: 2 Ab spontaneous: 1 Date of last pap smear: 12/30/20 (neg pap and hpv) Date of Mammogram: 05/01/21 Review of Systems Const All systems reviewed & are unremarkable except as noted in HPI and below Card Reports as per HPI and Reports no additional complaints Resp Reports as per HPI and Reports no additional complaints GI Reports as per HPI and Reports no additional complaints Reports as per HPI Physical Exam Vital Signs: Last Vital Signs BP 114/70 05/09/23 14:59 BMI result Body Mass Index 30.2 Const General: cooperative, healthy appearing and comfortable General: Yes bladder normal to palpation External Female Exam: No lesion Speculum Exam - Vagina: normal appearance of the vagina, normal vaginal discharge and not erythematous Speculum Exam - Cervix: Cervix absent Bimanual exam- vagina & uterus: bladder normal to palpation and uterus absent Bimanual Exam- Adnexa, other: Other (No masses detected) Assessment & Plan Assessment & Plan (1) Well woman exam: Code(s): Z01.419 - Encounter for gynecological examination (general) (routine) without abnormal findings Plan: Cotesting done. Mammogram ordered. Counseled the patient about the recommended dietary allowance of 1000 mg of Calcium & 600 IU of vitamin D. The patient was instructed to perform monthly self-breast exams and to schedule an annual exam in a year; The patient has been referred to GI for screening colonoscopy by PCP All questions answered and the patient verbalized understanding. Instructed the patient to schedule annual exam in a year Orders: Orders MM tomosynthesis screening BI Today Z12.31 - Encounter for screening mammogram for malignant neoplasm of breast Coding Level of Care Code Est Pt Prev Care 40-64y(05870) Diagnoses Well woman exam Z01.419
== END 2023-05-09 15:30 | disposition home or self-care (01) ==
LOC: HO.HWS 13:57
PROVIDERS: PCP Internal Medicine; Visit Provider Obstetrics & Gynecology
DX: Z01.419 Encounter for gynecological examination (general) (routine) without abnormal findings (principal)
CPT/HCPCS: 99396

== ENCOUNTER → 2023-05-09 13:57 | Outpatient (BNVA) | payer OTHER, SELFPAY | PROVIDERS: PCP Internal Medicine; Visit Provider Obstetrics & Gynecology ==

== ENCOUNTER 2023-05-19 10:20 | Outpatient (REF) | payer OTHER, SELFPAY ==
--- NOTE | 2023-05-19 10:24 | EMG_ITS ---
Bilateral tibial and peroneal motor studies were performed. Bilateral superficial peroneal and sural sensory studies were performed. Bilateral medial and lateral plantar sensory studies were performed. Tibial H reflexes were obtained and paraspinal and some limb muscles were tested with needle. IMPRESSION: This study revealed mild peripheral neuropathy affecting some sensory components in feet and legs. Motor nerves are intact. MD MARCUS Javed/AMEENA / [id number]
[2023-05-19 11:18] LABS: MANUAL DIFF FLAG NO
[2023-05-19 11:57] LABS: Basophils Absolute Auto 0.1 X10*3/uL (0.0-0.2); Basophils Percent Auto 0.6 % (0-2); Eosinophils Absolute Auto 0.1 X10*3/uL (0.0-0.4); Eosinophils Percent Auto 1.6 % (0-4); Hematocrit 41.1 % (37.0-47.0); Hemoglobin 14.2 g/dl (12.0-16.0); Imm Gran Abs Auto 0.01 X10*3/uL (0.00-0.03); Imm Gran Pct Auto 0.1 % (0.0-0.4); Lymphocytes Absolute Auto 2.4 X10*3/uL (1.2-4.9); Lymphocytes Percent Auto 29.7 % (20-40); Mean Corpuscular HGB Conc 34.5 g/dl (31.0-35.0); Mean Corpuscular Hemoglobin 29.7 pg (27.0-33.0); Mean Platelet Volume 9.5 fL (9.4-12.3); Monocytes Absolute Auto 0.7 X10*3/uL (0.1-1.2); Neutrophils Absolute Auto 4.9 x10*3/uL (2.0-8.3); Platelet Count 367 X10*3/uL (160-400); Red Blood Count 4.78 X10*6/uL (4.20-5.50); Red Cell Distribution Width 12.8 % (11.0-16.0); White Blood Count 8.2 X10*3/uL (4.8-10.8)
[2023-05-19 12:11] LABS: Appearance Urine Cloudy; Color Urine Yellow; Glucose Urine UA Negative (Negative); Leukocyte Esterase Urine Negative (Negative); Nitrite Urine Negative (Negative); PH 8.5 (5.0-9.0); UMIC TRIGGER UACC YES; Urine Blood Trace (Negative); Urine Ketones Negative (Negative); Urine Protein Negative (Neg-Trace)
[2023-05-19 12:19] LABS: Bacteria Urine None Seen (None Seen); Hyaline Casts Urine 0-2 /LPF (0-2); WBC Urine 0-5 /HPF (0-5)
[2023-05-19 12:36] LABS: Erythrocyte Sedimentation Rate 9 MM/HR (0-20)
[2023-05-19 12:42] LABS: Rheumatoid Factor < 13.0 IU/mL (<15.0)
[2023-05-19 12:51] LABS: Alanine Aminotransferase 19 U/L (0-31); Albumin Level 4.3 g/dL (3.5-5.0); Alkaline Phosphatase 84 U/L (39-117); Anion Gap 11 (12-20); Aspartate Amino Transferase 17 U/L (5-31); Bilirubin Total 0.4 mg/dL (0.0-1.0); Blood Urea Nitrogen 13 mg/dL (9-16); C Reactive Protein 0.23 mg/dL (< or = 0.50); Calcium 9.5 mg/dL (8.4-10.2); Carbon Dioxide 27 mmol/L (22-29); Chloride 105 mmol/L (96-108); Cholesterol 168 mg/dL (<200); Estimated Glomerular Filt Rate > 60; Glucose Fasting 81 mg/dL (60-99); HDL Cholesterol 46 mg/dL (>40); LDL Cholesterol Calculated 93 mg/dL (<100); Potassium 3.6 mmol/L (3.3-5.1); Sodium 139 mmol/L (135-145); Total Protein 7.7 g/dL (6.5-8.0); Triglycerides 149 mg/dL (<150)
[2023-05-19 13:08] LABS: TSH reflex Free T4 0.94 uIU/mL (0.32-4.0); Vitamin D 25-OH Total 29.3 ng/mL (>30)
[2023-05-19 13:13] LABS: Folate 8.1 ng/mL (> or = 4.0); Vitamin B12 358 pg/mL (200-900)
[2023-05-20 17:33] LABS: Lyme Abs Screen <0.90 index
[2023-05-24 15:29] LABS: Anti Nuclear Antibody Screen NEGATIVE (NEGATIVE)
== END 2023-05-19 10:21 | disposition home or self-care (01) ==
LOC: HO.NEURO 10:20
PROVIDERS: PCP Internal Medicine; Visit Provider Internal Medicine
DX: M79.604 Pain in right leg (principal); M79.605 Pain in left leg; M79.7 Fibromyalgia; E53.8 Deficiency of other specified B group vitamins; D64.9 Anemia, unspecified; E78.00 Pure hypercholesterolemia, unspecified; E55.9 Vitamin D deficiency, unspecified; T14.8XXA Other injury of unspecified body region, initial encounter; W57.XXXA Bitten or stung by nonvenomous insect and other nonvenomous arthropods, initial encounter; Z00.00 Encounter for general adult medical examination without abnormal findings
CPT/HCPCS: 36415; 80053; 80061; 81001; 81003; 82306; 82607; 82746; 84443; 85025; 85652; 86038; 86140; 86431; 86617; 86618; 95886; 95913

== ENCOUNTER 2023-07-06 10:25 | Outpatient (AMB) | payer OTHER, SELFPAY ==
--- NOTE | 2023-07-06 10:33 | MHC.OFFVIS ---
Intake Vital Signs 07/06/23 10:40 Height 5 ft 4 in Weight 176 lb 5.917 oz BMI 30.3 BP 113/67 Blood Pressure Location Rt brachial Position Sitting Pulse 84 Intake Visit Reasons: Colonoscopy Screening Intake Note: Patient present to in office today as a new patient for colonoscopyscreening Registered Nurse Renal Required: No Accompanied by: Self / Same As Patient Allergies pregabalin Allergy (Unknown, Verified 07/06/23 10:45) visual hallucinations HPI Colonoscopy Screening HPI Details 48-year-old female here for preprocedural meeting to discuss a screening colonoscopy. She is referred by Donato Flynn of [facility] primary care. PMX Obesity Migraines Fibromyalgia syndrome Nephrolithiasis Periumbilical hernia Carpal tunnel syndrome right wrist General arthralgias Menometrorrhagia Neuopathy * SURGICAL HISTORY History of bilateral salpingectomy Tubal ligation Carpal tunnel release Abdominoplasty with liposuction Hysterectomy * ALLERGIES Pregabalin * [employer] LABS: Laboratory Tests 05/19/23 11:17 WBC 8.2 Hgb 14.2 Hct 41.1 Plt Count 367 Estimated GFR > 60 Total Bilirubin 0.4 AST 17 ALT 19 Alkaline Phosphata se 84 C-Reactive Protein 0.23 TSH 0.94 TODAY'S VISIT This is her first colonoscopy. She denies any bowel or upper GI problems. There are no prior problems with anesthesia or sedation. She denies any cardiac or respiratory problems. NO ID problems. No FHX of crc or polyps. [facility] Medical History Colon cancer screening Annual physical exam Well woman exam Bacterial vaginosis Injury of great toenail Renal calculus, bilateral Obesity (BMI 30-39.9) Anemia Nephronophthisis-like nepropathy type 1 Migraines Fibromyalgia Surgical History Hx of bilateral salpingectomy (~05/27/22) History of laparoscopy-assisted vaginal hysterectomy (~05/27/22) History of nephrolithiasis History of tubal ligation History of carpal tunnel release History of abdominoplasty Family History Father Cirrhosis Liver failure Mother Hyperlipidemia Hypertension Maternal Grandfather CVD (cardiovascular disease) Social History Housing: House Alcohol intake: current Alcohol intake frequency: holidays/special occasions only Patient Tobacco Use Status: Never used Tobacco e-Cigarette/Vaping Use: Never Used Second Hand Smoke Exposure: No service: No Current occupational status: employed 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 Cognitive needs: No Hearing needs: No Vision needs: Yes Female Reproductive History Menstrual Age of Menarche: 13 Review of Systems Const Denies fatigue, Denies fever(s), Denies night sweats, Denies poor appetite and Denies weight loss ENT Reports Normal hearing present, Denies dysphagia, Denies odynophagia, Denies throat swelling and Denies tongue swelling Card Reports no additional complaints Resp Reports no additional complaints GI Details: Denies abdominal pain, Denies melena, Denies bloating, Denies hematochezia, Denies constipation, Denies GI cramping, Denies dysphagia, Denies excessive flatus, Denies early satiety, Denies heartburn, Denies diarrhea, Denies nausea, Denies odynophagia, Denies vomiting and Denies hematemesis Skin/Breast Denies pruritus, Denies lesions, Denies rash and Denies jaundice Neuro Reports Normal hearing present and Denies Abnormal speech present Endo Denies fatigue Aller/Immun Denies throat swelling and Denies tongue swelling Physical Exam Vital Signs: Last Vital Signs Pulse 84 07/06/23 10:40 BP 113/67 07/06/23 10:40 BMI result Body Mass Index 30.3 Const General: cooperative, no acute distress, well developed and well groomed Nutritional Appearance: well nourished and obese Orientation/consciousness: oriented to person, oriented to place and oriented to time Limitations: No language barrier HEENT Head: Yes normocephalic and Yes atraumatic Eyes General: appearance normal, both eyes and all related structures Pupils: Equal, round and reactive pupils present Neck Neck: Yes normal visual inspection and Yes no lymphadenopathy Thyroid: Thyroid normal Resp Effort & Inspection: normal respiratory effort and able to speak in complete sentences Auscultation: clear to auscultation bilaterally Cardio Rate: regular rate Rhythm: regular rhythm Heart sounds: Normal, physiologic split S2 sound present Peripheral pulses: radial pulses present and posterior tibial pulses present GI Inspection: No distended and No Abdominal panniculus present Palpation (GI): Soft to palpation, nontender, no guarding, not rigid and No hepatosplenomegaly present Percussion: Yes normal to percussion Auscultation: normal bowel sounds Rectal Exam - Female: deferred Abdomen image: 1. Skin General skin exam: no rashes or lesions noted, turgor normal, skin not dry, no jaundice, No spider nevi and no striae Rashes: no rashes Nails: normal Neuro General: oriented to person, oriented to place and oriented to time Cranial nerves: Yes Equal, round and reactive pupils present and Yes Normal hearing present Speech: No Abnormal speech present Extrem General: Yes normal to inspection, No clubbing, No cyanosis and No edema Psych Appearance: grossly normal and well kempt Mental Status: mental status grossly normal Speech and movement: Normal speech and movement present Affect: normal affect Attitude: cooperative Thought process: Normal thought process present and not confabulating Thought content: Normal thought content present Insight: Fair insight present (Psych) Judgement: Fair judgement present (Psych) Results Reviewed Results Reviewed: Laboratory Tests 05/19/23 11:17 WBC 8.2 Hgb 14.2 Hct 41.1 Plt Count 367 Estimated GFR > 60 Total Bilirubin 0.4 AST 17 ALT 19 Alkaline Phosphatase 84 C-Reactive Protein 0.23 TSH 0.94 Assessment & Plan Assessment & Plan (1) Preoperative examination: Code(s): Z01.818 - Encounter for other preprocedural examination Plan This is her first colonoscopy. She denies any bowel or upper GI problems. There are no prior problems with anesthesia or sedation. She denies any cardiac or respiratory problems. NO ID problems. No FHX of crc or polyps. Orders: Orders Colonoscopy - GI Use Only Today Z01.818 - Encounter for other preprocedural examination Medications: New peg 3350-electrolytes 236-22.74-6.74 -5.86 gram (Golytely) until fecal effluent is clear; do not exceed a total volume of 2,000 mL 240 mL PO Q10M 1 day 4,000 mL 0RF Z12.11 - Encounter for screening for malignant neoplasm of colon bisacodyl (Dulcolax (bisacodyl)) 10 mg (2 x 5 mg) PO BEDTIME 2 days 4 tabs 0RF Coding Level of Care Code New Pt Level 3 (80939) Diagnoses Preoperative examination Z01.818
[2023-07-06 10:40] VITALS: BP 113/67; PULSE 84; BMI 30.3
== END 2023-07-06 11:07 | disposition home or self-care (01) ==
PROVIDERS: PCP Internal Medicine; Visit Provider Nurse Practitioner
DX: Z01.818 Encounter for other preprocedural examination (principal)
CPT/HCPCS: 99203

== ENCOUNTER → 2023-07-06 10:25 | Outpatient (BNVA) | payer OTHER, SELFPAY | PROVIDERS: PCP Internal Medicine; Visit Provider Nurse Practitioner ==

== ENCOUNTER 2023-09-05 13:20 | Outpatient (AMB) | payer OTHER, SELFPAY ==
--- NOTE | 2023-09-05 13:23 | A.OFFPC_ITS ---
Vital Signs 09/05/23 13:24 Height 5 ft 4 in Weight 175 lb 6 oz BMI 30.1 BP 132/70 Blood Pressure Location Rt brachial Position Sitting Pulse 87 Pulse Source Pulse Oximeter Pulse Oximetry (%) 97 Oxygen Delivery Method Room Air Intake Visit Reasons: 4 month f/u Intake Note: Patient is here to follow up on Fibromyalgia, Migraines. Mixing Machine Tender Cork Rod Required: No Brownfield Redevelopment Specialist: Not Required per policy Accompanied by: Self / Same As Patient Allergies pregabalin Allergy (Unknown, Verified 09/05/23 13:58) visual hallucinations Medication List - Last Reconciled 09/05/23 by Donato Flynn MD bisacodyl (Dulcolax (bisacodyl)) 10 mg (2 x 5 mg) PO BEDTIME 2 days cholecalciferol (vitamin D3) 50 mcg PO DAILY 90 days ferrous sulfate 325 mg PO BID folic acid 1 mg PO DAILY gabapentin 300 mg PO TID 30 days ibuprofen 800 mg PO Q6H PRN 30 days peg 3350-electrolytes 236-22.74-6.74 -5.86 gram (Golytely) 240 mL PO Q10M 1 day sumatriptan succinate 25 mg PO Q2-4H PRN 30 days tramadol 50 mg PO Q8H PRN 30 days Tobacco use date assessed: 09/05/23 Dental Screening Dental Screen Date: 05/04/23 HPI 4 month f/u HPI Details Patient comes in today for her follow up visit States that she feels okay Still has recurrent right wrist pain and joint pains and needs her Tramadol Rx refilled She was seen by Dr. Jackson for her right wrist pain a couple of weeks ago and was recommended to undergo carpal tunnel release on her right wrist - was advised that they will reach out to her once her surgery is scheduled She is also now scheduled for her screening colonoscopy in November 2023 and will be seeing rheumatology for her joint pains next month She had her annual mammogram done at [facility] a couple of months ago (normal) and was seen by Dr. Whitfield for her annual gynecology exam earlier this year States that she feels tired all the time as she works 7 days a week; would like to take some time off but has not yet made any plans She presently denies any headaches or dizziness Denies any chest pains, no SOB No nausea/vomiting, no abdominal pain No change in bowel habits noted Would like to know how she did on her labs done back in May 2023 [facility] Medical History Colon cancer screening Annual physical exam Well woman exam Bacterial vaginosis Injury of great toenail Renal calculus, bilateral Obesity (BMI 30-39.9) Anemia Nephronophthisis-like nepropathy type 1 Migraines Fibromyalgia Surgical History Hx of bilateral salpingectomy (~05/27/22) History of laparoscopy-assisted vaginal hysterectomy (~05/27/22) History of nephrolithiasis History of tubal ligation History of carpal tunnel release History of abdominoplasty Family History Father Cirrhosis Liver failure Mother Hyperlipidemia Hypertension Maternal Grandfather CVD (cardiovascular disease) Social History Housing: House Alcohol intake: current Alcohol intake frequency: holidays/special occasions only Patient Tobacco Use Status: Never used Tobacco e-Cigarette/Vaping Use: Never Used Second Hand Smoke Exposure: No service: No Current occupational status: employed 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 Ja Pop, Virgie Oneill, Ty Sanchez and colleagues, with an educational robert from [employer]. Review of Systems Const Denies chills, Reports fatigue, Denies fever(s) and Denies headache(s) ENT Denies dysphagia, Denies dizziness, Denies otalgia, Denies headache(s), Denies neck pain, Denies odynophagia and Denies sore throat Card Denies chest pain, Denies rapid heart rate, Denies palpitations and Denies dyspnea Resp Denies chest congestion, Denies cough, Denies dyspnea and Denies wheezing GI Denies abdominal pain, Denies constipation, Denies dysphagia, Denies heartburn, Denies diarrhea, Denies nausea, Denies odynophagia and Denies vomiting Denies hematuria, Denies urinary frequency, Denies dysuria and Denies urinary urgency Musc Denies back pain, Reports myalgias (diffuse), Reports arthralgias (involving multiple joints, including her right wrist - increasing lately), Denies neck pain, Reports numbness (on and off in the right hand) and Reports tingling (in the right hand, on and off) Skin/Breast Denies rash Neuro Details: increasing pain frequently over both lower extremities Denies dizziness, Denies headache(s), Reports numbness (on and off in the right hand) and Reports tingling (in the right hand, on and off) Psych Denies anxiety and Denies depression Endo Reports fatigue and Denies palpitations Adonay/Lymph Denies easy bruising Aller/Immun Denies wheezing Physical exam (Primary Care) Vital Signs: Last Vital Signs Pulse 87 09/05/23 13:24 BP 132/70 09/05/23 13:24 Pulse Ox 97 09/05/23 13:24 Oxygen Delivery Method Room Air 09/05/23 13:24 BMI result Body Mass Index 30.1 Tobacco/Smoking Status: Tobacco use Status Tobacco use date assessed 09/05/23 09/05/23 13:29 Patient Tobacco Use Status Never used Tobacco 09/05/23 13:29 e-Cigarette/Vaping Use Never Used 09/05/23 13:29 Thrive Assessment: Date of Thrive Assessment Date Thrive assessed 05/04/23 09/05/23 13:29 Const General: no acute distress and alert HENMT Ears: TM's normal bilaterally and EAC's normal Throat: Yes posterior oropharynx normal and Yes tonsils normal (no TP congestion) Neck Neck: Yes no lymphadenopathy and Yes supple Thyroid: Thyroid normal Resp Auscultation: clear to auscultation bilaterally, no rales and no wheezes Cardio Rate: regular rate Rhythm: regular rhythm Heart sounds: no murmurs GI Palpation (GI): Soft to palpation and nontender Auscultation: normal bowel sounds General: Yes no CVA tenderness Back/Spine/Pelvis Back: no CVA tenderness Thoracic/Lumbar Spine: thoracic and lumbar spine normal to inspection Skin Rashes: no rashes Extrem General: Yes no clubbing, cyanosis or edema Right upper extremity: shoulder/upper arm Details: tenderness (diffusely over the scapular area) and wrist Details: tenderness; Tinel's positive Left upper extremity: shoulder/upper arm Details: tenderness (diffusely over the scapular areas) Results Reviewed Results Reviewed: Laboratory Tests 05/19/23 05/19/23 11:17 11:20 WBC 8.2 Hgb 14.2 Hct 41.1 Plt Count 367 ESR 9 Sodium 139 Potassium 3.6 Creatinine 0.73 Estimated GFR > 60 Fasting Glucose 81 Calcium 9.5 AST 17 ALT 19 C-Reactive Protein 0.23 Triglycerides 149 Cholesterol 168 LDL Cholesterol, Calc 93 HDL Cholesterol 46 Vitamin B12 358 25-OH Vitamin D Total 29.3 L TSH 0.94 Ur Specific Webb 1.020 Urine Protein Negative Urine Glucose (UA) Negative Urine Ketones Negative Urine Blood Trace H Urine Nitrite Negative Ur Leukocyte Esterase Negative Rheumatoid Factor < 13.0 EPIFANIO Screen NEGATIVE Lyme Screen IgG & IgM <0.90 Assessment and Plan Assessment & Plan (1) Carpal tunnel syndrome of right wrist: Comment: S/P left carpal tunnel surgery done by Dr. Jackson back in 2016 Code(s): G56.01 - Carpal tunnel syndrome, right upper limb Plan: She was seen by Dr. Jackson at [place] a couple of weeks ago and is now being scheduled for right carpal tunnel release/surgery (2) Bilateral lower extremity pain: Code(s): M79.604 - Pain in right leg; M79.605 - Pain in left leg Plan: We have suspected that neuropathy is the most likely source of her recent increasing leg pain Patient vaguely recalls getting some nerve test done on her legs years ago but could not locate any of these in her records here at [facility]; have advised that I could only find 2 separate NCVs done on her upper extremities years ago wherein she was diagnosed with carpal tunnel syndrome She was sent for NCV & EMG of the lower extremities for further evaluation - EMG and NCV done back in May 2023 revealed (+) mild peripheral neuropathy affecting some sensory components in feet and legs. Motor nerves are intact (3) Fibromyalgia: Code(s): M79.7 - Fibromyalgia Plan: She has been seen by Dr. De La Torre here at [facility] years ago and requested for a referral to go to [facility] and see rheumatology there as she works in [place] and they would be closer to get to for her there but she ended up getting the referral changed back here to [facility] She is now scheduled to see rheumatology here next month (4) Arthralgia: Comment: involving multiple joints Code(s): M25.50 - Pain in unspecified joint Qualifiers: Joint pain location: unspecified Qualified Code(s): M25.50 - Pain in unspecified joint Plan: Results of her labs done back in May 2023 reviewed and discussed with patient She is now scheduled to see rheumatology next month for further evaluation and management Continue Tramadol 50 mg TID PRN for pain - Rx refilled (5) Anemia: Code(s): D64.9 - Anemia, unspecified Qualifiers: Anemia type: iron deficiency Iron deficiency anemia type: unspecified iron deficiency Qualified Code(s): D50.9 - Iron deficiency anemia, unspecified Plan: She is advised that her CBC done in May 2023 came back normal Continue Ferrous Sulfate 325 mg BID (6) Migraines: Code(s): G43.909 - Migraine, unspecified, not intractable, without status migrainosus Qualifiers: Migraine type: chronic without aura Status migrainosus presence: without status migrainosus Intractability: not intractable Qualified Code(s): G43.709 - Chronic migraine without aura, not intractable, without status migrainosus Plan: Stable Continue Sumatriptan 25 mg PRN (7) Renal calculus, bilateral: Code(s): N20.0 - Calculus of kidney Plan: Retroperitoneal US done at [facility] on 05/20/21 revealed a tiny 0.2 cm calculus in the midpole of the right kidney and 2 non-obstructing left-sided renal calculiy, the largest in the upper pole measuring 0.8 cm Follow up with urology in [place] (Dr. Carlson) as scheduled (8) Uterine myoma: Code(s): D25.9 - Leiomyoma of uterus, unspecified Qualifiers: Uterine leiomyoma location: unspecified location Qualified Code(s): D25.9 - Leiomyoma of uterus, unspecified Plan: Follow up with OB-Software Configuration Engineer as scheduled (9) Obesity (BMI 30-39.9): Code(s): E66.9 - Obesity, unspecified Plan: Reinforced diet/exercise as tolerated/lose weight Plan Follow up in 4 months Medications: Refilled tramadol 50 mg PO Q8H 30 days PRN 90 tabs 0RF pain Coding Level of Care Code Est Pt Level 4 (73705) Diagnoses Carpal tunnel syndrome of right wrist G56.01 Bilateral lower extremity pain M79.604; M79.605 Fibromyalgia M79.7 Arthralgia, unspecified joint M25.50 Joint pain location: unspecified Iron deficiency anemia, unspecified iron deficiency anemia type D50.9 Anemia type: iron deficiency Iron deficiency anemia type: unspecified iron deficiency Chronic migraine without aura without status migrainosus, not intractable G43.709 Migraine type: chronic without aura Status migrainosus presence: without status migrainosus Intractability: not intractable Renal calculus, bilateral N20.0 Uterine leiomyoma, unspecified location D25.9 Uterine leiomyoma location: unspecified location Obesity (BMI 30-39.9) E66.9
[2023-09-05 13:24] VITALS: BP 132/70; PULSE 87; O2SAT 97; BMI 30.1
== END 2023-09-05 14:09 | disposition home or self-care (01) ==
PROVIDERS: PCP Internal Medicine; Visit Provider Internal Medicine
DX: G56.01 Carpal tunnel syndrome, right upper limb (principal); M79.604 Pain in right leg; M79.605 Pain in left leg; M79.7 Fibromyalgia; D50.9 Iron deficiency anemia, unspecified; G43.709 Chronic migraine without aura, not intractable, without status migrainosus; N20.0 Calculus of kidney; D25.9 Leiomyoma of uterus, unspecified
CPT/HCPCS: 99214

== ENCOUNTER 2023-10-04 10:13 | Outpatient (AMB) | payer OTHER, SELFPAY ==
--- NOTE | 2023-10-04 10:20 | A.OFFVIS_ITS ---
Vital Signs 10/04/23 10:21 Height 5 ft 4 in Weight 176 lb 5.917 oz BMI 30.3 BP 102/60 Blood Pressure Location Rt brachial Position Sitting Pulse 90 Pulse Source Pulse Oximeter Pulse Oximetry (%) 99 Oxygen Delivery Method Room Air Intake Visit Reasons: Joint Pain Intake Note: New patient, internally referred, presents to office today for joint pain. Previously seen by Dr. De La Torre in 2019 for FM. Joints affected: multiple Pain began approx: Has tried: ibuprofen, pregabalin, gabapentin, tramadol Commercial Review Appraiser Required: No Accompanied by: Self / Same As Patient Allergies pregabalin Allergy (Unknown, Verified 10/04/23 10:28) visual hallucinations HPI Comments Details: Ms. Nicole 48yoF presenting for evaluation of Fibromyalgia on gabapentin and tramadol. She denies CTD and inflammatory history and symptoms. She says her FM is stable and in general she is doing OK. She is not sure she needs to be here. She says her arthralgia did increase but her pains are fairly stable with the Tramadol and gabapentin. She takes them as needed because she does not really like to take medications. 03/05/2022 PCP Visit: 46-year-old female with a history of fibromyalgia, migraines, uterine myoma, anemia. Patient Dr. Flynn last seen in August for preop for liposuction and buttock augmentation. Patient presents today for follow-up visit Patient has 2 laparoscopic healed scars from procedure to right and left upper quadrant. Patient states since after the procedure has a bump to right umbilical region. Patient denies pain but states can be sensitive when she touches it. Denies any increased swelling or protrusion if she lifts heavy things. Patient states in the past has developed hernia following procedures. Will obtain abdominal ultrasound further evaluate. patient presents today for follow-up visit. Patient also requesting podiatry referral as she has previously injured her bilateral great toenails and they have never properly grown back. Patient states she is embarrassed by her toenails and covers them with acrylic nail during the summer months. Patient has also seen [facility] urogynecology for her fibroids and states that she plans to proceed with a hysterectomy and her appointment will possibly be scheduled for this in April. [facility] Medical History Colon cancer screening Annual physical exam Well woman exam Bacterial vaginosis Injury of great toenail Renal calculus, bilateral Obesity (BMI 30-39.9) Anemia Nephronophthisis-like nepropathy type 1 Migraines Fibromyalgia Surgical History Hx of bilateral salpingectomy (~05/27/22) History of laparoscopy-assisted vaginal hysterectomy (~05/27/22) History of nephrolithiasis History of tubal ligation History of carpal tunnel release History of abdominoplasty Family History Father Cirrhosis Liver failure Mother Hyperlipidemia Hypertension Maternal Grandfather CVD (cardiovascular disease) Social History Housing: House Alcohol intake: current Alcohol intake frequency: holidays/special occasions only Patient Tobacco Use Status: Never used Tobacco e-Cigarette/Vaping Use: Never Used Second Hand Smoke Exposure: No service: No Current occupational status: employed 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 Constitutional: Non-toxic appearing. No acute distress. Well-developed and well-nourished. HEENT: Normocephalic and atraumatic. External auditory canals without erythema or edema bilaterally. Skin: Warm and dry. No rashes or lesions noted. Neck: Full and painless range of motion. No cervical lymphadenopathy. Cardio: Regular rate and rhythm. No murmurs, gallops, or rubs. No lower extremity edema. No JVD. Pulmonary: No respiratory distress. No accessory muscle usage. Gastrointestinal: Soft, nontender, and nondistended in all 4 quadrants. Normoactive bowel sounds in all 4 quadrants. Genitourinary: No CVA tenderness. Musculoskeletal: Normal range of motion in joints throughout the body. No deformity or other signs of injury. Neuro: Alert and oriented x4. Cranial nerves 2-12 grossly intact. No focal deficits appreciated. Results Reviewed Results Reviewed: Laboratory Tests 11/03/18 05/19/23 10:15 11:17 AST 17 ALT 19 25-OH Vitamin D Total 29.3 L Rheumatoid Factor < 13.0 Cycl Citrul Peptide IgG <16 EPIFANIO Screen NEGATIVE SS-A/Ro Antibody <1.0 SS-B/La Antibody <1.0 Assessment & Plan Assessment & Plan (1) Fibromyalgia: Code(s): M79.7 - Fibromyalgia Category: Medical Plan The patient, with known history of fibromyalgia, was previously evaluated for CTD and inflammatory pathology in 2019 with no adverse findings. Her EPIFANIO , RF and CCP are -ve. She denies red, warm swollen joint and other symptoms of CTD or inflammatory arthritis. For the fibromyalgia, she can continue management through her PCP on Gabapentin and Tramadol. No further Rheum workup is needed at this time. Coding Level of Care Code New Pt Level 2 (44408) Diagnoses Fibromyalgia M79.7
[2023-10-04 10:21] VITALS: BP 102/60; PULSE 90; O2SAT 99; BMI 30.3
== END 2023-10-04 11:29 | disposition home or self-care (01) ==
PROVIDERS: PCP Internal Medicine; Visit Provider Nurse Practitioner Family
DX: M79.7 Fibromyalgia (principal)
CPT/HCPCS: 99202

== ENCOUNTER → 2023-10-04 10:13 | Outpatient (BNVA) | payer OTHER, SELFPAY | PROVIDERS: PCP Internal Medicine; Visit Provider Nurse Practitioner Family ==

== ENCOUNTER 2024-01-09 14:11 | Outpatient (AMB) | payer OTHER, SELFPAY ==
--- NOTE | 2024-01-09 14:12 | MHC.PC.OV ---
Intake Visit Reasons: [facility] f/u Insurance Agents Supervisor Required: No Accompanied by: Self / Same As Patient Allergies pregabalin Allergy (Unknown, Verified 01/09/24 15:05) visual hallucinations Medication List - Last Reconciled 01/09/24 by Donato Flynn MD bisacodyl (Dulcolax (bisacodyl)) 10 mg (2 x 5 mg) PO BEDTIME 2 days cholecalciferol (vitamin D3) 50 mcg PO DAILY 90 days ferrous sulfate 325 mg PO BID folic acid 1 mg PO DAILY gabapentin 300 mg PO TID 30 days ibuprofen 800 mg PO Q6H PRN 30 days peg 3350-electrolytes 236-22.74-6.74 -5.86 gram (Golytely) 240 mL PO Q10M 1 day sumatriptan succinate 25 mg PO Q2-4H PRN 30 days tramadol 50 mg PO Q8H PRN 30 days Tobacco use date assessed: 01/09/24 Dental Screening Dental Screen Date: 01/09/24 Did you have a dental visit in the last 12 months?: Yes Did you have a dental problem in the last 6 months where you did not have access to dental care?: No Was dental information given to patient?: Patient has dentist HPI [facility] f/u HPI Details Patient's follow-up visit / consultation today is done over the phone - this is a Telehealth visit Patient's current medications have been reviewed and verified with patient and / or caregiver / proxy and have been updated accordingly in the medication list Patient states that she has been experiencing increased fatigue lately States that she has no problems sleeping at night - notes that she can sleep up to 10 hrs at night and still wake up the next day feeling very sleepy She just had right carpal tunnel surgery with Dr. Jackson at [facility] last week but states that her fatigue started long before her surgery She denies any headaches or dizziness Denies any chest pains, no SOB No nausea/vomiting, no abdominal pain No change in bowel habits noted Needs her Tramadol Rx refilled [facility] Medical History Colon cancer screening Annual physical exam Well woman exam Bacterial vaginosis Injury of great toenail Renal calculus, bilateral Obesity (BMI 30-39.9) Anemia Nephronophthisis-like nepropathy type 1 Migraines Fibromyalgia Surgical History Hx of bilateral salpingectomy (~05/27/22) History of laparoscopy-assisted vaginal hysterectomy (~05/27/22) History of nephrolithiasis History of tubal ligation History of carpal tunnel release History of abdominoplasty Family History Father Cirrhosis Liver failure Mother Hyperlipidemia Hypertension Maternal Grandfather CVD (cardiovascular disease) Social History Housing: House Alcohol intake: current Alcohol intake frequency: holidays/special occasions only Patient Tobacco Use Status: Never used Tobacco e-Cigarette/Vaping Use: Never Used Second Hand Smoke Exposure: No service: No Current occupational status: employed 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 1. Little interest or pleasure in doing things: several days 2. Feeling down, depressed, or hopeless: several days 3. Trouble falling or staying asleep, or sleeping too much: not at all 4. Feeling tired or having little energy: not at all 5. Poor appetite or overeating: not at all 6. Feeling bad about yourself - or that you are a failure or have let yourself or your family down: not at all 7. Trouble concentrating on things, such as reading the newspaper or watching television: not at all 8. Moving or speaking so slowly that other people could have noticed. Or the opposite - being so fidgety or restless that you have been moving around a lot more than usual: not at all 9. Thoughts that you would be better off or of hurting yourself in some way: not at all Total score: 2 Depression Screening Interpretation: Negative Depression Screening Done: Yes [id number] - PHQ-9 Billing: Yes Source: Developed by Drs. Ja Pop, Virgie Oneill, Ty Sanchez and colleagues, with an educational robert from [employer]. Thrive Questionnaire Date Thrive assessed: 01/09/24 I am a: Patient What is your living situation today?: I have a steady place to live Within the past 12 months, did the food you bought not last and you didn't have the money to get more?: Never true Within the past 12 months, did you worry whether your food would run out before you got money to buy more?: Never true Do you have trouble paying for medicines?: No Do you have trouble getting transportation to medical appointments?: No Do you have trouble paying your heating and electricity bill?: No Do you have trouble taking care of your child, family member or friend?: No Do you have trouble with day-to-day activities such as bathing, preparing meals, shopping, managing finances, etc.?: No Are you currently unemployed and looking for a job?: No Are you interested in more education?: No Please select the resources that you would like help with: None Currently or been in a relationship where the following occur: No concerns reported THRIVE Score: 0 AUDIT C Alcohol Use Questionnaire (AUDIT-C) 1. How often do you have a drink containing alcohol?: Monthly or less 2. How many drinks containing alcohol do you have on a typical day when you are drinking?: 1 or 2 3. How often do you have six or more drinks on one occasion?: Never Total Score: 1 Score Reviewed/Action Taken: Yes SHAMIKA-7 AMB Questionnaire SHAMIKA-7 Date SHAMIKA - 7 assessed: 01/09/24 Feeling nervous, anxious, or on edge: 0 = Not at all Not being able to stop or control worryin = Not at all Worrying too much about different things: 0 = Not at all Trouble relaxin = Not at all Being so restless that it is hard to sit still: 0 = Not at all Becoming easily annoyed or irritable: 0 = Not at all Feeling afraid as if something awful might happen: 0 = Not at all Total SHAMIKA-7 score (0-4 normal; 5-9 mild; 10-14 moderate; 15-21 severe): 0 Source: Developed by Drs. Ja Pop, Virgie Oneill, Ty Sanchez and colleagues, with an educational robert from [employer]. Review of Systems Const Denies chills, Reports daytime sleepiness (at times), Reports fatigue (increasing), Denies fever(s) and Denies headache(s) ENT Denies dysphagia, Denies dizziness, Denies otalgia, Denies headache(s), Denies neck pain, Denies odynophagia and Denies sore throat Card Denies chest pain, Denies rapid heart rate, Denies palpitations and Denies dyspnea Resp Denies chest congestion, Denies cough and Denies dyspnea GI Denies abdominal pain, Denies constipation, Denies dysphagia, Denies heartburn, Denies diarrhea, Denies nausea, Denies odynophagia and Denies vomiting Denies urinary frequency, Denies dysuria and Denies urinary urgency Musc Denies back pain, Reports myalgias (diffuse), Reports arthralgias (involving multiple joints) and Denies neck pain Skin/Breast Denies rash Neuro Denies dizziness and Denies headache(s) Psych Denies anxiety and Denies depression Endo Reports fatigue (increasing) and Denies palpitations Adonay/Lymph Denies easy bruising Physical exam (Primary Care) Vital Signs: Physical examination is not performed as visit / consultation today is done over the phone - Telehealth visit All physical findings indicated here, if present, are as per patient's and / or caregivers / proxy's report Tobacco/Smoking Status: Tobacco use Status Tobacco use date assessed 01/09/24 01/09/24 14:14 Patient Tobacco Use Status Never used Tobacco 01/09/24 14:14 e-Cigarette/Vaping Use Never Used 01/09/24 14:14 PHQ-9: PHQ-9 Score PHQ-9: Total score 2 01/09/24 15:05 Depression Screening Interpretation: Negative Thrive Assessment: Date of Thrive Assessment Date Thrive assessed 01/09/24 01/09/24 14:14 Currently or been in a relationship where the following occur: No concerns reported Telehealth Telehealth Telehealth Platform: Telephone Location of provider rendering services: practice address Location of patient: address on file Patient Identification confirmed using: Name, : Yes Telehealth method: voice only Patient verbally consented to treatment: Yes Patient verbally consented to billing insurance company: Yes Patient informed of any privacy concerns related to visit: Yes Minutes spent on Phone/Video with Pt.: 23 Assessment and Plan Assessment & Plan (1) Fatigue: Code(s): R53.83 - Other fatigue Qualifiers: Fatigue type: unspecified Qualified Code(s): R53.83 - Other fatigue Plan: Will send patient for some labs PIYUSH for further evaluation Have advised patient that her symptoms may also be due to RACHID and if her labs are unrevealing and her symptoms persist, can consider ordering a home sleep study on her for further evaluation (2) Carpal tunnel syndrome of right wrist: Comment: S/P left carpal tunnel surgery done by Dr. Jackson back in 2016 Code(s): G56.01 - Carpal tunnel syndrome, right upper limb Plan: S/P right carpal tunnel release/surgery with Dr. Jackson last week Follow up with orthopedics as scheduled (3) Bilateral lower extremity pain: Code(s): M79.604 - Pain in right leg; M79.605 - Pain in left leg Plan: We have suspected that neuropathy is the most likely source of her recent increasing leg pain She was sent for NCV & EMG of the lower extremities for further evaluation - EMG and NCV done back in May 2023 revealed (+) mild peripheral neuropathy affecting some sensory components in feet and legs. Motor nerves are intact Advised that the tests do not really help explain her symptoms and that her leg symptoms may be due to a combination of her fibromyalgia or polyarthralgia (4) Fibromyalgia: Code(s): M79.7 - Fibromyalgia Plan: She has been seen by Dr. De La Torre here at [facility] years ago and requested for a referral to go [facility] and see [facility]ology there as she works in [place] and they would be closer to get to for her there but she ended up getting the referral changed back here to [facility] She is now scheduled to see rheumatology here next month (5) Arthralgia: Comment: involving multiple joints Code(s): M25.50 - Pain in unspecified joint Qualifiers: Joint pain location: unspecified Qualified Code(s): M25.50 - Pain in unspecified joint Plan: She is now scheduled to see rheumatology next month for further evaluation and management Continue Tramadol 50 mg TID PRN for pain - Rx refilled (6) Anemia: Code(s): D64.9 - Anemia, unspecified Qualifiers: Anemia type: iron deficiency Iron deficiency anemia type: unspecified iron deficiency Qualified Code(s): D50.9 - Iron deficiency anemia, unspecified Plan: She is advised that her CBC done in May 2023 came back normal Continue Ferrous Sulfate 325 mg BID Will recheck her CBC (7) Migraines: Code(s): G43.909 - Migraine, unspecified, not intractable, without status migrainosus Qualifiers: Migraine type: chronic without aura Status migrainosus presence: without status migrainosus Intractability: not intractable Qualified Code(s): G43.709 - Chronic migraine without aura, not intractable, without status migrainosus Plan: Stable Continue Sumatriptan 25 mg PRN (8) Renal calculus, bilateral: Code(s): N20.0 - Calculus of kidney Plan: Retroperitoneal US done at [facility] on 05/20/21 revealed a tiny 0.2 cm calculus in the midpole of the right kidney and 2 non-obstructing left-sided renal calculiy, the largest in the upper pole measuring 0.8 cm Follow up with urology in [place] (Dr. Carlson) as scheduled (9) Obesity (BMI 30-39.9): Code(s): E66.9 - Obesity, unspecified Plan: Reinforced diet/exercise as tolerated/lose weight Plan To return in 4 months for her next annual physical examination Orders: Orders Complete Blood Count Auto Diff 01/09/24 D64.9 - Anemia, unspecified, R53.83 - Other fatigue TSH reflex Free T4 01/09/24 E78.00 - Pure hypercholesterolemia, unspecified, R53.83 - Other fatigue Vitamin D 25-OH Total 01/09/24 E55.9 - Vitamin D deficiency, unspecified, R53.83 - Other fatigue Comprehensive Met. Panel 01/09/24 R53.83 - Other fatigue UA CC w/rflx Micro + Cult 01/09/24 R30.0 - Dysuria, R53.83 - Other fatigue Medications: Refilled tramadol 50 mg PO Q8H 30 days PRN 90 tabs 0RF pain Coding Level of Care Code Tele Est Pt Level 4 (74249) Diagnoses Fatigue, unspecified type R53.83 Fatigue type: unspecified Carpal tunnel syndrome of right wrist G56.01 Bilateral lower extremity pain M79.604; M79.605 Fibromyalgia M79.7 Arthralgia, unspecified joint M25.50 Joint pain location: unspecified Iron deficiency anemia, unspecified iron deficiency anemia type D50.9 Anemia type: iron deficiency Iron deficiency anemia type: unspecified iron deficiency Chronic migraine without aura without status migrainosus, not intractable G43.709 Migraine type: chronic without aura Status migrainosus presence: without status migrainosus Intractability: not intractable Renal calculus, bilateral N20.0 Obesity (BMI 30-39.9) E66.9
== END 2024-01-09 15:58 | disposition home or self-care (01) ==
LOC: HO.HMCH 14:11
PROVIDERS: PCP Internal Medicine; Visit Provider Internal Medicine
DX: R53.83 Other fatigue (principal); G56.01 Carpal tunnel syndrome, right upper limb; E66.9 Obesity, unspecified; M79.604 Pain in right leg; M79.605 Pain in left leg; M79.7 Fibromyalgia; M25.50 Pain in unspecified joint; D50.9 Iron deficiency anemia, unspecified; G43.709 Chronic migraine without aura, not intractable, without status migrainosus; N20.0 Calculus of kidney

== ENCOUNTER → 2024-01-09 14:11 | Outpatient (BNVA) | payer OTHER, SELFPAY | PROVIDERS: PCP Internal Medicine; Visit Provider Internal Medicine | DX: R53.83 Other fatigue (principal); M79.604 Pain in right leg; M79.605 Pain in left leg; M79.7 Fibromyalgia; M25.50 Pain in unspecified joint; D50.9 Iron deficiency anemia, unspecified; G43.709 Chronic migraine without aura, not intractable, without status migrainosus; N20.0 Calculus of kidney; E66.9 Obesity, unspecified; Z79.899 Other long term (current) drug therapy; Z86.69 Personal history of other diseases of the nervous system and sense organs | CPT/HCPCS: 96127 ==

== ENCOUNTER 2024-03-02 10:16 | Outpatient (REF) | payer OTHER, SELFPAY ==
[2024-03-02 10:56] LABS: MANUAL DIFF FLAG NO
[2024-03-02 11:36] LABS: Basophils Absolute Auto 0.1 X10*3/uL (0.0-0.2); Basophils Percent Auto 0.8 % (0-2); Eosinophils Absolute Auto 0.2 X10*3/uL (0.0-0.4); Eosinophils Percent Auto 2.1 % (0-4); Hemoglobin 13.2 g/dl (12.0-16.0); Imm Gran Abs Auto 0.03 X10*3/uL (0.00-0.03); Imm Gran Pct Auto 0.4 % (0.0-0.4); Lymphocytes Absolute Auto 2.4 X10*3/uL (1.2-4.9); Lymphocytes Percent Auto 31.8 % (20-40); Mean Corpuscular HGB Conc 34.7 g/dl (31.0-35.0); Mean Corpuscular Volume 86.4 fL (80.0-98.0); Mean Platelet Volume 9.9 fL (9.4-12.3); Monocytes Absolute Auto 0.7 X10*3/uL (0.1-1.2); Monocytes Percent Auto 9.5 % (2-11); Neutrophils Absolute Auto 4.3 x10*3/uL (2.0-8.3); Neutrophils Percent Auto 55.4 % (45-73); Platelet Count 340 X10*3/uL (160-400); Red Cell Distribution Width 13.2 % (11.0-16.0); White Blood Count 7.7 X10*3/uL (4.8-10.8)
[2024-03-02 12:02] LABS: Appearance Urine Clear; Color Urine Yellow; Glucose Urine UA Negative (Negative); Leukocyte Esterase Urine Negative (Negative); Nitrite Urine Negative (Negative); PH 6.5 (5.0-9.0); UMIC TRIGGER UACC YES; Urine Blood Trace (Negative); Urine Ketones Negative (Negative); Urine Protein Negative (Neg-Trace)
[2024-03-02 12:06] LABS: Bacteria Urine None Seen (None Seen); Hyaline Casts Urine 0-2 /LPF (0-2); WBC Urine 0-5 /HPF (0-5)
[2024-03-02 12:27] LABS: Alanine Aminotransferase 23 U/L (0-31); Alkaline Phosphatase 70 U/L (39-117); Anion Gap 10 (12-20); Aspartate Amino Transferase 21 U/L (5-31); Bilirubin Total 0.3 mg/dL (0.0-1.0); Blood Urea Nitrogen 15 mg/dL (9-16); Calcium 9.4 mg/dL (8.4-10.2); Carbon Dioxide 25 mmol/L (22-29); Chloride 105 mmol/L (96-108); Estimated Glomerular Filt Rate > 60; Glucose Random 79 mg/dL (60-115); Potassium 4.3 mmol/L (3.3-5.1); Sodium 136 mmol/L (135-145); TSH reflex Free T4 1.28 uIU/mL (0.32-4.0); Total Protein 6.9 g/dL (6.5-8.0); Vitamin D 25-OH Total 37.3 ng/mL (>30)
== END 2024-03-02 10:17 | disposition home or self-care (01) ==
LOC: HO.LAB 10:16
PROVIDERS: PCP Internal Medicine; Visit Provider Internal Medicine
DX: D64.9 Anemia, unspecified (principal); E55.9 Vitamin D deficiency, unspecified; E78.00 Pure hypercholesterolemia, unspecified; R53.83 Other fatigue
CPT/HCPCS: 36415; 80053; 81001; 81003; 82306; 84443; 85025

== ENCOUNTER 2024-03-26 13:34 | Outpatient (AMB) | payer OTHER, SELFPAY ==
--- NOTE | 2024-03-26 13:46 | A.OFFPC_ITS ---
Vital Signs 03/26/24 13:47 Height 5 ft 4 in Weight 182 lb BMI 31.2 BP 140/72 H Blood Pressure Location Lt brachial Position Sitting Pulse 73 Pulse Source Pulse Oximeter Temp 97.9 F Temp Source Oral Pulse Oximetry (%) 99 Oxygen Delivery Method Room Air Intake Visit Reasons: congestion, ear pain Intake Note: Patient is here to follow up on congestion, headache, chills, ear pain, difficulty breathing, and sore throat on going for 5 days. OTC not helping. Generator Rebuilder Required: No Cuff Matcher: Not Required per policy Accompanied by: Self / Same As Patient Allergies pregabalin Allergy (Unknown, Verified 03/26/24 14:04) visual hallucinations Medication List - Last Reconciled 03/26/24 by Nagi Marie MD bisacodyl (Dulcolax (bisacodyl)) 10 mg (2 x 5 mg) PO BEDTIME 2 days cholecalciferol (vitamin D3) 50 mcg PO DAILY 90 days ferrous sulfate 325 mg PO BID folic acid 1 mg PO DAILY gabapentin 300 mg PO TID 30 days ibuprofen 800 mg PO Q6H PRN 30 days peg 3350-electrolytes 236-22.74-6.74 -5.86 gram (Golytely) 240 mL PO Q10M 1 day sumatriptan succinate 25 mg PO Q2-4H PRN 30 days tramadol 50 mg PO Q8H PRN 30 days Tobacco use date assessed: 03/26/24 Dental Screening Dental Screen Date: 01/09/24 HPI congestion, ear pain HPI Details Patient presents for a sick visit. Reporting symptoms of sinus congestion, sore throat and difficulty swallowing. Low-grade fever. No family member is sick. No recent travel. Patient reports symptoms of malaise and fatigue. [facility], [facility] Medical History Colon cancer screening Annual physical exam Well woman exam Bacterial vaginosis Injury of great toenail Renal calculus, bilateral Obesity (BMI 30-39.9) Anemia Nephronophthisis-like nepropathy type 1 Migraines Fibromyalgia Surgical History Hx of bilateral salpingectomy (~05/27/22) History of laparoscopy-assisted vaginal hysterectomy (~05/27/22) History of nephrolithiasis History of tubal ligation History of carpal tunnel release History of abdominoplasty Family History Father Cirrhosis Liver failure Mother Hyperlipidemia Hypertension Maternal Grandfather CVD (cardiovascular disease) Social History Housing: House Alcohol intake: current Alcohol intake frequency: holidays/special occasions only Patient Tobacco Use Status: Never used Tobacco e-Cigarette/Vaping Use: Never Used Second Hand Smoke Exposure: No service: No Current occupational status: employed 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 Ja Pop, Virgie Oneill, Ty Sanchez and colleagues, with an educational robert from [employer]. Physical exam (Primary Care) Vital Signs: Last Vital Signs Temp 97.9 F 03/26/24 13:47 Pulse 73 03/26/24 13:47 BP 140/72 H 03/26/24 13:47 Pulse Ox 99 03/26/24 13:47 Oxygen Delivery Method Room Air 03/26/24 13:47 BMI result Body Mass Index 31.2 Tobacco/Smoking Status: Tobacco use Status Tobacco use date assessed 03/26/24 03/26/24 13:55 Patient Tobacco Use Status Never used Tobacco 03/26/24 13:55 e-Cigarette/Vaping Use Never Used 03/26/24 13:55 Thrive Assessment: Date of Thrive Assessment Date Thrive assessed 01/09/24 03/26/24 13:55 Const General: cooperative and healthy appearing Nutritional Appearance: well nourished Orientation/consciousness: patient oriented x3 Limitations: no limitations HENMT Head: Yes normal to inspection Eyes General: appearance normal, both eyes and all related structures Neck Neck: Yes normal visual inspection Chest Chest palpation & inspection: normal palpation of entire chest wall Resp Effort & Inspection: normal respiratory effort Neuro General: patient oriented x3 Coding Level of Care Code Est Pt Level 3 (37024) Complex EM visit Add On G2211 Diagnoses Upper respiratory tract infection J06.9 Assessment & Plan Assessment & Plan (1) Upper respiratory tract infection: Code(s): J06.9 - Acute upper respiratory infection, unspecified Plan: Antibiotics ordered. Increase fluid intake. Tylenol for aches and pains. If symptoms worsen, follow-up here for a recheck.
[2024-03-26 13:47] VITALS: BP 140/72; PULSE 73; TEMP 36.6; O2SAT 99; BMI 31.2
== END 2024-03-26 15:31 | disposition home or self-care (01) ==
PROVIDERS: PCP Internal Medicine; Visit Provider Internal Medicine
DX: J06.9 Acute upper respiratory infection, unspecified (principal)

== ENCOUNTER 2024-05-07 17:23 | Outpatient (AMB) | payer OTHER, SELFPAY ==
--- NOTE | 2024-05-07 17:24 | MHC.PC.OV ---
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: No Accompanied by: Self / Same As Patient Allergies pregabalin Allergy (Unknown, Verified 05/07/24 17:46) visual hallucinations Medication List - Last Reconciled 05/07/24 by Donato Flynn MD cholecalciferol (vitamin D3) 50 mcg PO DAILY 90 days ferrous sulfate 325 mg PO BID folic acid 1 mg PO DAILY gabapentin 300 mg PO TID 30 days ibuprofen 800 mg PO Q6H PRN 30 days sumatriptan succinate 25 mg PO Q2-4H PRN 30 days tramadol 50 mg PO Q8H PRN 30 days Tobacco use date assessed: 05/07/24 Dental Screening Dental Screen Date: 05/07/24 Did you have a dental visit in the last 12 months?: Yes Did you have a dental problem in the last 6 months where you did not have access to dental care?: No Was dental information given to patient?: Patient has dentist HPI annual exam HPI Details Patient comes in today for her annual physical examination States that she feels okay She denies any headaches or dizziness Denies any chest pains, no increased shortness of breath No nausea/vomiting, no abdominal pain No change in bowel habits noted She denies any acute urinary symptoms She needs a couple of her Rx refilled She had her follow-up labs done back in February 2024 - to discuss her results She is up-to-date with annual mammogram and yearly gynecologic exam and Pap smear - is scheduled for both of these again in June 2024 She was not able to get screening colonoscopy done last year and would like to be referred for this again [facility] Medical History (Updated 05/14/24 @ 04:53 by Donato Flynn MD) Colon cancer screening Annual physical exam Well woman exam Bacterial vaginosis Injury of great toenail Renal calculus, bilateral Obesity (BMI 30-39.9) Anemia Nephronophthisis-like nepropathy type 1 Migraines Fibromyalgia Surgical History Hx of bilateral salpingectomy (~05/27/22) History of laparoscopy-assisted vaginal hysterectomy (~05/27/22) History of nephrolithiasis History of tubal ligation History of carpal tunnel release History of abdominoplasty Family History Father Cirrhosis Liver failure Mother Hyperlipidemia Hypertension Maternal Grandfather CVD (cardiovascular disease) Social History Housing: House Alcohol intake: current Alcohol intake frequency: holidays/special occasions only Patient Tobacco Use Status: Never used Tobacco e-Cigarette/Vaping Use: Never Used Second Hand Smoke Exposure: No service: No Current occupational status: employed 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 1. Little interest or pleasure in doing things: several days 2. Feeling down, depressed, or hopeless: several days 3. Trouble falling or staying asleep, or sleeping too much: not at all 4. Feeling tired or having little energy: several days 5. Poor appetite or overeating: not at all 6. Feeling bad about yourself - or that you are a failure or have let yourself or your family down: not at all 7. Trouble concentrating on things, such as reading the newspaper or watching television: several days 8. Moving or speaking so slowly that other people could have noticed. Or the opposite - being so fidgety or restless that you have been moving around a lot more than usual: not at all 9. Thoughts that you would be better off or of hurting yourself in some way: not at all Total score: 4 Depression Screening Interpretation: Positive Depression Screening Follow-up: Existing condition and Follow-up Visit Requested Depression Screening Done: Yes 42471 - PHQ-9 Billing: Yes Source: Developed by Drs. Ja Pop, Virgie Oneill, Ty Sanchez and colleagues, with an educational robert from [employer]. Thrive Questionnaire Date Thrive assessed: 05/07/24 I am a: Patient What is your living situation today?: I have a steady place to live Within the past 12 months, did the food you bought not last and you didn't have the money to get more?: I choose not to answer this question Within the past 12 months, did you worry whether your food would run out before you got money to buy more?: Never true Do you have trouble paying for medicines?: No Do you have trouble getting transportation to medical appointments?: No Do you have trouble paying your heating and electricity bill?: No Do you have trouble taking care of your child, family member or friend?: No Do you have trouble with day-to-day activities such as bathing, preparing meals, shopping, managing finances, etc.?: No Are you currently unemployed and looking for a job?: No Are you interested in more education?: No Please select the resources that you would like help with: None Currently or been in a relationship where the following occur: I choose not to answer THRIVE Score: 0 AUDIT C Alcohol Use Questionnaire (AUDIT-C) 1. How often do you have a drink containing alcohol?: Monthly or less 2. How many drinks containing alcohol do you have on a typical day when you are drinking?: 1 or 2 3. How often do you have six or more drinks on one occasion?: Never Total Score: 1 Score Reviewed/Action Taken: Yes SHAMIKA-7 AMB Questionnaire SHAMIKA-7 Date SHAMIKA - 7 assessed: 05/07/24 Feeling nervous, anxious, or on edge: 1 = Several days Not being able to stop or control worryin = Several days Worrying too much about different things: 3 = Nearly every day Trouble relaxin = Several days Being so restless that it is hard to sit still: 0 = Not at all Becoming easily annoyed or irritable: 0 = Not at all Feeling afraid as if something awful might happen: 0 = Not at all Total SHAMIKA-7 score (0-4 normal; 5-9 mild; 10-14 moderate; 15-21 severe): 6 Source: Developed by Drs. Ja Pop, Virgie Oneill, Ty Sanchez and colleagues, with an educational robert from [employer]. Review of Systems Const Denies chills, Denies fatigue, Denies fever(s), Denies headache(s) and Denies malaise Eyes Denies blurry vision, Denies change in vision, Denies irritation and Denies itchy eyes ENT Denies dysphagia, Denies dizziness, Denies headache(s), Denies neck pain and Denies odynophagia Card Denies chest pain, Denies rapid heart rate, Denies irregular heart rhythm, Denies palpitations and Denies dyspnea Resp Denies chest congestion, Denies cough, Denies dyspnea and Denies wheezing GI Denies abdominal pain, Denies bloating, Denies constipation, Denies dysphagia, Denies heartburn, Denies diarrhea, Denies nausea, Denies odynophagia and Denies vomiting Denies hematuria, Denies urinary frequency, Denies dysuria, Denies urinary incontinence and Denies urinary urgency Musc Denies back pain, Reports myalgias (diffuse), Reports arthralgias (involving multiple joints) and Denies neck pain Skin/Breast Denies breast pain, Denies breast mass, Denies change in pigmentation, Denies lesions, Denies rash and Denies unusual bruising Neuro Denies dizziness, Denies headache(s) and Denies paresthesias Psych Denies anxiety and Denies depression Endo Denies fatigue and Denies palpitations Adonay/Lymph Denies easy bruising Aller/Immun Denies itchy eyes and Denies wheezing Physical exam (Primary Care) Vital Signs: Last Vital Signs Pulse 86 05/07/24 17:25 BP 110/80 05/07/24 17:25 Pulse Ox 99 05/07/24 17:25 Oxygen Delivery Method Room Air 05/07/24 17:25 BMI result Body Mass Index 30.2 Tobacco/Smoking Status: Tobacco use Status Tobacco use date assessed 05/07/24 05/07/24 17:28 Patient Tobacco Use Status Never used Tobacco 05/07/24 17:28 e-Cigarette/Vaping Use Never Used 05/07/24 17:28 PHQ-9: PHQ-9 Score PHQ-9: Total score 4 05/07/24 17:46 Depression Screening Interpretation: Positive Depression Screening Follow-up: Existing condition and Follow-up Visit Requested Thrive Assessment: Date of Thrive Assessment Date Thrive assessed 05/07/24 05/07/24 17:28 Currently or been in a relationship where the following occur: I choose not to answer Const General: no acute distress, alert and awake Orientation/consciousness: patient oriented x3 HENMT Head: Yes normocephalic and Yes atraumatic Ears: external ears normal, TM's normal bilaterally and EAC's normal General nose exam: No nasal discharge present Face and sinus: Yes normal facial exam and Yes sinuses nontender Teeth and gingiva: dentition normal Throat: Yes posterior oropharynx normal and Yes tonsils normal (no TP congestion) Eyes Eyelids: Yes eyelids normal Conjunctivae: conjunctivae normal Pupils: Equal, round and reactive pupils present EOM: EOMs intact bilaterally Neck Neck: Yes no lymphadenopathy and Yes supple Thyroid: Thyroid normal Resp Auscultation: clear to auscultation bilaterally, no rales and no wheezes Cardio Rate: regular rate Rhythm: regular rhythm Heart sounds: no murmurs GI Palpation (GI): Soft to palpation, nontender and No hepatosplenomegaly present Auscultation: normal bowel sounds General: Yes no CVA tenderness Back/Spine/Pelvis Back: no CVA tenderness Thoracic/Lumbar Spine: thoracic and lumbar spine normal to inspection Skin Lesions: no lesions Rashes: no rashes Neuro General: patient oriented x3, moves all extremities, no focal motor deficits and CN's II-XI intact bilaterally Cranial nerves: Yes Equal, round and reactive pupils present Cognition (Neuro): normal cognition Gait exam (Neuro): Normal gait present Extrem General: Yes no clubbing, cyanosis or edema Right upper extremity: shoulder/upper arm Details: tenderness (diffusely over the scapular area) and wrist Details: tenderness; Tinel's positive Left upper extremity: shoulder/upper arm Details: tenderness (diffusely over the scapular areas) Results Reviewed Results Reviewed: Laboratory Tests 03/02/24 03/02/24 10:51 10:55 WBC 7.7 Hgb 13.2 Hct 38.0 Plt Count 340 Sodium 136 Potassium 4.3 Creatinine 0.64 Estimated GFR > 60 Random Glucose 79 Calcium 9.4 AST 21 ALT 23 25-OH Vitamin D Total 37.3 TSH 1.28 Ur Specific [place] 1.020 Urine Protein Negative Urine Glucose (UA) Negative Urine Blood Trace H Urine Nitrite Negative Ur Leukocyte Esterase Negative Coding Level of Care Code Est Pt Prev Care 40-64y(50552) Diagnoses Annual physical exam Z00.00 Carpal tunnel syndrome of right wrist G56.01 Bilateral lower extremity pain M79.604; M79.605 Fibromyalgia M79.7 Arthralgia, unspecified joint M25.50 Joint pain location: unspecified Iron deficiency anemia, unspecified iron deficiency anemia type D50.9 Anemia type: iron deficiency Iron deficiency anemia type: unspecified iron deficiency Chronic migraine without aura without status migrainosus, not intractable G43.709 Migraine type: chronic without aura Status migrainosus presence: without status migrainosus Intractability: not intractable Renal calculus, bilateral N20.0 Obesity (BMI 30-39.9) E66.9 Colon cancer screening Z12.11 Additional Codes PHQ-9 - 95062 - PHQ-9 Billing: Yes ([id number]) Assessment & Plan Assessment & Plan (1) Annual physical exam: Code(s): Z00.00 - Encounter for general adult medical examination without abnormal findings Category: Medical Plan: Results of her labs done back in February 2024 reviewed and discussed with patient Patient is up-to-date with her annual mammogram and yearly gynecology exam and Pap smear She has not yet had her screening colonoscopy done and will be referred again to GI for this (2) Carpal tunnel syndrome of right wrist: Comment: S/P left carpal tunnel surgery done by Dr. Jackson back in 2016 Code(s): G56.01 - Carpal tunnel syndrome, right upper limb Category: Medical Plan: S/P right carpal tunnel release/surgery with Dr. Jackson in December 2023 Follow up with orthopedics as scheduled (3) Bilateral lower extremity pain: Code(s): M79.604 - Pain in right leg; M79.605 - Pain in left leg Category: Medical Plan: We suspect that neuropathy is the most likely source of her recent increasing leg pain She was sent for NCV & EMG of the lower extremities for further evaluation - EMG and NCV done back in May 2023 revealed (+) mild peripheral neuropathy affecting some sensory components in feet and legs. Motor nerves are intact Advised that the tests do not really help explain her symptoms and that her leg symptoms may be due to a combination of her fibromyalgia or polyarthralgia (4) Fibromyalgia: Code(s): M79.7 - Fibromyalgia Category: Medical Plan: She has [place] by [place]. [place] Tor[place] [facility] [place] and requested for a referral to go [facility] and see [facility]ology there as she works in [place] and they would be closer to get to for her there but she ended up getting the referral changed back here [place] [facility] [place] [facility] [place] as scheduled (5) Arthralgia: Comment: involving multiple joints Code(s): M25.50 - Pain in unspecified joint Category: Medical Qualifiers: Joint pain location: unspecified Qualified Code(s): M25.50 - Pain in unspecified joint Plan: Continue Tramadol 50 mg TID PRN for pain Follow-up with rheumatology as scheduled (6) Anemia: Code(s): D64.9 - Anemia, unspecified Category: Medical Qualifiers: Anemia type: iron deficiency Iron deficiency anemia type: unspecified iron deficiency Qualified Code(s): D50.9 - Iron deficiency anemia, unspecified Plan: Her H/H were normal on her labs done back in February 2024 Continue Ferrous Sulfate 325 mg BID We will continue to monitor her CBC regularly (7) Migraines: Code(s): G43.909 - Migraine, unspecified, not intractable, without status migrainosus Category: Medical Qualifiers: Migraine type: chronic without aura Status migrainosus presence: without status migrainosus Intractability: not intractable Qualified Code(s): G43.709 - Chronic migraine without aura, not intractable, without status migrainosus Plan: Stable Continue Sumatriptan 25 mg PRN (8) Renal calculus, bilateral: Code(s): N20.0 - Calculus of kidney Category: Medical Plan: Retroperitoneal US done at [facility] on 05/20/21 revealed a tiny 0.2 cm calculus in the midpole of the right kidney and 2 non-obstructing left-sided renal calculiy, the largest in the upper pole measuring 0.8 cm Follow up with urology in [place] (Dr. Carlson) as scheduled (9) Obesity (BMI 30-39.9): Code(s): E66.9 - Obesity, unspecified Category: Medical Plan: Reinforced diet/exercise as tolerated/lose weight (10) Colon cancer screening: Code(s): Z12.11 - Encounter for screening for malignant neoplasm of colon Category: Medical Plan: Will refer her again to GI for screening colonoscopy Plan Follow up in 6 months Orders: Orders Complete Blood Count Auto Diff 05/07/24 D64.9 - Anemia, unspecified, Z00.00 - Encounter for general adult medical examination without abnormal findings TSH reflex Free T4 05/07/24 E78.00 - Pure hypercholesterolemia, unspecified, Z00.00 - Encounter for general adult medical examination without abnormal findings UA CC w/rflx Micro + Cult 05/07/24 R30.0 - Dysuria, Z00.00 - Encounter for general adult medical examination without abnormal findings Hemoglobin A1c 05/07/24 R35.0 - Frequency of micturition, R73.01 - Impaired fasting glucose, Z00.00 - Encounter for general adult medical examination without abnormal findings Comprehensive [place]. Panel Fast 05/07/24 E78.00 - Pure hypercholesterolemia, unspecified, Z00.00 - Encounter for general adult medical examination without abnormal findings Lipid Panel 05/07/24 E78.00 - Pure hypercholesterolemia, unspecified, Z00.00 - Encounter for general adult medical examination without abnormal findings Vitamin D 25-OH Total 05/07/24 E55.9 - Vitamin D deficiency, unspecified, Z00.00 - Encounter for general adult medical examination without abnormal findings Referrals Gastroenterology Referral Z12.11 - Encounter for screening for malignant neoplasm of colon Medications: Refilled sumatriptan succinate do not exceed 8 doses per 24 hrs 25 mg PO Q2-4H 30 days PRN 9 tabs 3RF migraine headache cholecalciferol (vitamin D3) 50 mcg PO DAILY 90 days 90 caps 3RF E55.9 - Vitamin D deficiency, unspecified
[2024-05-07 17:25] VITALS: BP 110/80; PULSE 86; O2SAT 99; BMI 30.2
== END 2024-05-07 18:00 | disposition home or self-care (01) ==
PROVIDERS: PCP Internal Medicine; Visit Provider Internal Medicine
DX: Z00.00 Encounter for general adult medical examination without abnormal findings (principal); G56.01 Carpal tunnel syndrome, right upper limb; E66.9 Obesity, unspecified; Z68.30 Body mass index [BMI] 30.0-30.9, adult; M79.604 Pain in right leg; M79.605 Pain in left leg; M79.7 Fibromyalgia; M25.50 Pain in unspecified joint; D50.9 Iron deficiency anemia, unspecified; G43.709 Chronic migraine without aura, not intractable, without status migrainosus; N20.0 Calculus of kidney; Z12.11 Encounter for screening for malignant neoplasm of colon

== ENCOUNTER → 2024-05-07 17:23 | Outpatient (BNVA) | payer OTHER, SELFPAY | PROVIDERS: PCP Internal Medicine; Visit Provider Internal Medicine | DX: Z00.00 Encounter for general adult medical examination without abnormal findings (principal); M79.604 Pain in right leg; M79.605 Pain in left leg; M79.7 Fibromyalgia; M25.50 Pain in unspecified joint; D50.9 Iron deficiency anemia, unspecified; G43.709 Chronic migraine without aura, not intractable, without status migrainosus; N20.0 Calculus of kidney; E66.9 Obesity, unspecified; Z68.30 Body mass index [BMI] 30.0-30.9, adult; Z79.899 Other long term (current) drug therapy; Z86.69 Personal history of other diseases of the nervous system and sense organs; Z98.890 Other specified postprocedural states | CPT/HCPCS: 96127 ==

== ENCOUNTER 2024-08-08 11:29 | Outpatient (AMB) | payer OTHER, SELFPAY ==
--- NOTE | 2024-08-08 11:31 | A.OFFVIS_ITS ---
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 No complaints. Last Pap/HPV was negative in 01/06, the patient is status post hysterectomy for AUB and fibroid Last Mammogram was BI-RADS 1 in 07/09 No previous screening Colonoscopy, the patient has an appointment with GI for screening colonoscopy soon [facility] Medical History Well woman exam Colon cancer screening Annual physical exam Bacterial vaginosis Injury of great toenail Renal calculus, bilateral Obesity (BMI 30-39.9) Anemia Nephronophthisis-like nepropathy type 1 Migraines Fibromyalgia Surgical History Hx of bilateral salpingectomy (~05/27/22) History of laparoscopy-assisted vaginal hysterectomy (~05/27/22) History of nephrolithiasis History of tubal ligation History of carpal tunnel release History of abdominoplasty Family History Father Cirrhosis Liver failure Mother Hyperlipidemia Hypertension Maternal Grandfather CVD (cardiovascular disease) Social History Housing: House Alcohol intake: current Alcohol intake frequency: holidays/special occasions only Patient Tobacco Use Status: Never used Tobacco e-Cigarette/Vaping Use: Never Used Second Hand Smoke Exposure: No Patient : No service: No Current occupational status: employed 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 Cognitive needs: No Hearing needs: No Vision needs: Yes Female Reproductive History Menstrual Age of Menarche: 13 Total pregnancies: 3 Full term: 2 Ab spontaneous: 1 Date of last pap smear: 12/30/20 (negative pap smear, negative hpv) History of abnormal pap smear: No Date of Mammogram: 06/22/23 (bi rad 1) Review of Systems Const All systems reviewed & are unremarkable except as noted in HPI and below Card Reports as per HPI and Reports no additional complaints Resp Reports as per HPI and Reports no additional complaints GI Reports as per HPI and Reports no additional complaints Reports as per HPI Physical Exam Vital Signs: Last Vital Signs BP 126/72 08/08/24 11:37 BMI result Body Mass Index 30.2 Const General: cooperative, healthy appearing and comfortable General: Yes bladder normal to palpation External Female Exam: No lesion Speculum Exam - Vagina: normal appearance of the vagina, normal vaginal discharge and not erythematous Speculum Exam - Cervix: Cervix absent Bimanual exam- vagina & uterus: bladder normal to palpation and uterus absent Bimanual Exam- Adnexa, other: Other (No masses detected) Assessment & Plan Assessment & Plan (1) Well woman exam: Code(s): Z01.419 - Encounter for gynecological examination (general) (routine) without abnormal findings Category: Medical Plan: Cotesting not indicated. Instructions given the patient to schedule next screening Mammogram . Counseled the patient about the recommended dietary allowance of 1000 mg of Calcium & 600 IU of vitamin D. The patient was instructed to perform monthly self-breast exams and to schedule an annual exam in a year; All questions answered and the patient verbalized understanding. Instructed the patient to schedule annual exam in a year Orders: Orders MM tomosynthesis screening BI Today Z12.31 - Encounter for screening mammogram for malignant neoplasm of breast Coding Level of Care Code Est Pt Prev Care 40-64y(09095) Diagnoses Well woman exam Z01.419
[2024-08-08 11:37] VITALS: BP 126/72; BMI 30.2
--- OUTSIDE RECORDS SUMMARY | 2024-08-08 13:54 | XMS_ITS | Clinical Summary ---
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 Name Role Phone Unavailable Primary Care Provider Unavailabl e Source Comments PLEASE NOTE, if this patient is a minor, it may be UNLAWFUL to discuss sensitive information that is contained in these records (such as FAMILY PLANNING, MENTAL HEALTH or SUBSTANCE ABUSE) with the minor patient's parent or other person without the patient's specific authorization.[facility] Immunizations Immunization Administration Dates Next Due Moderna COVID-19 Vaccine, re d cap blue label, 12+ Primary Series 07/30/2020,07/02/2020 Social History Tobacco Use Types Packs/Day Years Used Date Smoking Tobacco: Never Assessed Social Connections Answer Date Recorded Connectedness 0 12/29/2023 Financial Resource Strain Answer Date R ecorded Financial Resource Strain 0 2020 Stress Answer Date Recorded Stress 0 07/02/2020 Physical Activity Answer Date Recorded Physical Activity 0 07/02/2020 Food Insecurity Answer Date Recorded Food 0 01/12/2024 Transportation Needs Answer Date Record ed Transportation 0 07/02/2020 Housing Stability Answer Date Recorded Housing 0 07/02/2020 Safety and Environment Answer Date Colin rded Safety 0 07/02/2020 Utilities Answer Date Recorded Utilities 0 07/02/2020 Employment Answer Date Recorded Stress 0 12/29/2023 Comments Unknown Sex and Gender Information Value Date Recorded Sex Assigned at Not on file Legal Sex Female 7:25 AM PST Gender Identity Not on file Sexual Orientation Not on file Plan of Treatment Health Maintenance Due Date Last Done Comments Anxiety Screening 1976 Diabetes Screening 1976 HPV Screening 1976 Hepatitis C Screening 1976 Lipid Screening 1976 Pap + HPV 1976 Tobacco Screening 1976 HIV Screening 1991 Relationship Safety Screening/Counseling 1991 Hypertension Screening (#1) 1994 Imm-DTaP/Tdap/Td (1 - Tdap) 1995 Imm-Hepatitis B (1 of 3 - 19 + 3-dose series) 1995 Cervical Cancer Screening 1997 Pap Smear 1997 Breast Cancer Screening (Mammogram) 2016 CT Colonography 2021 Colonoscopy 2021 Colorectal Cancer Screening 2021 FIT/gFOBT 2021 Fecal DNA 2021 Flexible Sigmoidoscopy 2021 [id number] ( season) 2023 07/03/2021, 07/30/2020, 07/02/2020 Imm-Influenza (#1) 2023 Alcohol and Drug Screen 04/18/2024 Depression Annual Screen 04/18/2024 Cervical Ablation/Cold-Knife Conization Discontinued Cervical Cryotherapy Discontinued Colposcopy Discontinued Endometrial Biopsy Discontinued Excision/Leep Discontinued HPV Genotyping Discontinued Vaginal Pap Discontinued Vulvoscopy Discontinued Insurance [employer] PLAN Member Subscriber Plan / Payer (Ef fective 2020-Present) Name:Mercedez Nicole Relation to Subscriber:Self Name:Mercedez Nicole Payer ID:[id number] Group ID:Not on file Type:Medicaid Address: [facility] [address] [place] [address]
--- OUTSIDE RECORDS SUMMARY | 2024-08-08 13:55 | XMS_ITS | Clinical Summary ---
Author Organization [facility] Address [address] [place] [address] Phone Care Team Providers Care User Interface Developer Name Role Phone Donato Flynn MD Primary Care Provider [phone] Allergies No known active allergies Medications cholecalciferol (VITAMIN D-3) 50 mcg (2,000 unit) capsule TAKE 1 CAPSULE ORALLY DAILY FOR 90 DAYS 07/26/2023 Active clotrimazole (LOTRIMIN) 1 % cream Apply to skin and toenails daily for 12 weeks 06/09/2022 Active folic acid (FOLVITE) 1 mg tablet Take 1 Tablet by mouth daily. 01/15/2022 Active SUMAtriptan (IMITREX) 25 mg tablet Take 1 Tablet by mouth daily as needed. May repeat dose once after 2 hours, if needed. Active triazolam (HALCION) 0.25 mg tablet Take 1 Tablet by mouth at bedtime as needed. Active gabapentin (NEURONTIN) 100 mg capsule TAKE 1-3 CAPSULES BY MOUTH EVERY DAY AT BEDTIME 02/12/2021 Active tacrolimus (Protopic) 0.1 % ointment Apply to affected are BID 10/14/2020 Active triamcinolone (KENALOG) 0.1 % cream Mixed with cerave and apply after shower 01/28/2020 Active urea (CARMOL) 40 % cream Apply to upper back qd 11/01/2017 Active traMADoL (ULTRAM) 50 mg tablet Take 50 mg by mouth every 6 hours as needed. Active ibuprofen (ADVIL,MOTRIN) 800 mg tablet TAKE 1 TABLET BY MOUTH TWICE A DAY FOR 30 DAYS 60 tablet 03/14/2024 Active Active Problems Problem Noted Date Diagnosed Date Right carpal tunnel syndrome 12/30/2023 Neuropathy 10/14/2020 Atopic dermatitis 06/28/2019 Bursitis 06/28/2019 Fibromyalgia 06/28/2019 Surgical History Surgery Date Site/Laterality Comments HAND SURGERY Left PROCEDURE: HISTORICAL HAND SURGERY; COMMENT: left eCTR about 8 years ago Medical History Medical History Date Comments Atopic dermatitis DX:Atopic derm atitis Social History Tobacco Use Types Packs/Day Years Used Date Smoking Tobacco: Never Smokeless Tobacco: Never Alcohol Use Standard Drinks/Week Comments Yes 0 (1 standard drink = 0.6 oz pur e alcohol) Comments Unknown Sex and Gender Information Value Date Recorded Sex Assigned at Not on file Legal Sex Female 6:51 PM EST Gender Identity Not on file Sexual Orientation Not on file Obstetrics History Last Filed Vital Signs Vital Sign Reading Time Taken Comments Blood Pressure 109/80 12/30/2023 11:31 AM EDT Pulse 84 12/30/2023 11:31 AM EDT Temperature - - Respiratory Rate - - Oxygen Saturation - - Inhaled Oxygen Concentration - - Weight 79.8 kg (176 lb) 12/30/2023 11:31 AM EDT Height 162.6 cm (5' 4 ) 12/30/2023 11:31 AM EDT Body Mass Index 30.21 12/30/2023 11:31 AM EDT Plan of Treatment Health Maintenance Due Date Last Done Comments DTaP,Tdap,and Td Vaccines (1 - Tdap) 1995 Hepatitis B Vaccines (1 of 3 - 19+ 3-dose series) 1995 Cervical Cancer Screening: Pap Smear 1997 Colorectal Cancer Screening: Colonoscopy 03/20/2022 Depression Screening 03/20/2022 HIV Screening 03/20/2022 Hepatitis C Screening 03/20/2022 Social Influencers of Health Screening 03/20/2022 COVID-19 Vaccine ( season) 2023 07/03/2021, 07/30/2020, 07/02/2020 Influenza Vaccine (Season Ended) 2024 Breast Cancer Screening 06/21/2025 06/22/19 24, 05/01/2021, 07/06/2019, Additional history exists HIB Vaccines Aged Out No longer eligi ble based on patient's age to complete this topic HPV Vaccines Aged Out No longer eligi ble based on patient's age to complete this topic Hepatitis A Vaccines Aged Out No long er eligible based on patient's age to complete this topic IPV Vaccines Aged Out No longer eligi ble based on patient's age to complete this topic MMR Vaccines Aged Out No longer eligi ble based on patient's age to complete this topic Meningococcal ACWY Vaccine Aged Out N o longer eligible based on patient's age to complete this topic Meningococcal B Vaccine Aged Out No l onger eligible based on patient's age to complete this topic Pneumococcal Vaccine: Pediatrics (0 to 5 Years) and At-Risk Patients (6 to 64 Years) Aged Out No longer eligible based on patient's age to complete this topic RSV Immunization Patients Under 20 months Aged Out No longer eligible based on patient's age to complete this topic Varicella Vaccines Aged Out No longer eligible based on patient's age to complete this topic Goals Goal Patient Goal Type Associated Problems Recent Progress Patient-Stated? Author <enter goal here> General Yes Jackie Sawant, OT Note: REGAIN FUNCTIONAL USE DOMINANT RIGHT HAND STGS 4 TO 6 VISITS<enter goal here> General On track( 024 4:00 PM EST) No Jackie Sawant, OT Note: #1 PARTICIPATE IN SCAR MANAGEMENT TO HAVE NO ADHERENCE #2 IMPROVE RIGHT WRIST EXTENSION FROM 30 TO 55 DEGREES WITH FAIR PLUS STRENGTH TO WEIGHTBEAR #3 IMPROVE RIGHT THUMB EXTENSION FROM 40 TO 55 DEGREES UPON REACH #4 IMPROVE THUMB IP FLEXION FROM 20 TO 40 DEGREES #5 IMPROVE RIGHT RAIL CAR REPAIRMAN FROM 10 TO 25 POUNDS LTG INCORPORATE POSTURAL AWARENESS AND NERVE GLIDING INTO DAILY REGIME Procedures Procedure Name Priority Date/Time Associated Diagnosis Comments [facility] SCREENING DIGITAL Routine 06/22/2023 1:49 PM EST Encounter for screening mammogram for malignant neoplasm of breast from Last 3 Months or Most Recently Relevant to Health Maintenance Results * [facility] SCREENING DIGITAL (06/22/2023 1:49 PM EST) Anatomical Region Laterality Modality Mammography 06/22/2023 11:2 1 AM EST Narrative 06/22/2023 1:49 PM EST [facility] Diagnostic Imaging Department [address] [place] [id number] Patient: ??MERCEDEZ NICOLE ?/Age/Sex: 1975 - 48 - F Unit#: ??[id number] ? Location/Status: ??SPDIMAM/REG CLI ? Mnemonic/Ordering Site: ??DIGSC/SPMAM Ordering Physician: ??JOEY WHITFIELD MD [facility] Screening Digital - 06/22/23 - 1138 Report Status:Signed EXAM: [facility] Screening Digital EXAM DATE AND TIME: 06/22/2023 11:38 AM HISTORY: ??Annual screening COMPARISON: ??Multiple exams dating back to 2018 TECHNIQUE: Bilateral digital breast tomosynthesis was performed in the CC and MLO projections. Computer aided detection with [employer] 3D 3.1 was employed. TISSUE DENSITY: b. There are scattered areas of fibroglandular density. FINDINGS: No suspicious masses, grouped microcalcifications, or areas of architectural distortion are seen. The skin and vascularity are unremarkable. IMPRESSION: Stable mammographic appearance of the breasts. ??No evidence of malignancy is seen. A negative mammogram in the presence of a clinically suspicious palpable abnormality does not preclude the possibility of malignancy or alter the indications for biopsy. BI-RADS: ??Category 1: Negative RECOMMENDATION(S): 1: Routine screening mammogram BILATERAL in 1 year. 3341F, 7025F Dictating Physician: ??JUNO HERNANDEZ MD Electronically Signed by: ??JUNO HERNANDEZ MD Dic Date/Time: ??06/22/23 1348 Sign date/Time: ??06/22/23 1349 Procedure Note Juno Hernandez MD - 12/05/2023 [facility] Diagnostic Imaging Department [address] [place] [address] Patient: MERCEDEZ NICOLE D.O.B./Age/Sex: 1975 - 48 - F Unit#: [id number] [facility]Ordering Site: [facility] Ordering Physician: JOEY WHITFIELD MD [facility] Screening Digital - 06/22/23 - 1138 Report Status:Signed EXAM: [facility] Screening Digital EXAM DATE AND TIME: 06/22/2023 11:38 AM HISTORY: Annual screening COMPARISON: Multiple exams dating back to 2018 TECHNIQUE: Bilateral digital breast tomosynthesis was performed in the CCand MLO projections. Computer aided detection with [employer] 3D 3.1was employed. TISSUE DENSITY: b. There are scattered areas of fibroglandular density. FINDINGS: No suspicious masses, grouped microcalcifications, or areas ofarchitectural distortion are seen. The skin and vascularity are unremarkable. IMPRESSION: Stable mammographic appearance of the breasts. No evidence of malignancyis seen. A negative mammogram in the presence of a clinically suspicious palpable abnormality does not preclude the possibility of malignancy or alter the indications for biopsy. BI-RADS: Category 1: Negative RECOMMENDATION(S): 1: Routine screening mammogram BILATERAL in 1 year. 3341F, 7025F Dictating Physician: JUNO HERNANDEZ MD Electronically Signed by: JUNO HERNANDEZ MD Dic Date/Time: 06/22/23 1348 Sign date/Time: 06/22/23 1349 Joey Whitfield MD IMG BI PROCEDURES Final Result from Last 3 Months or Most Recently Relevant to Health Maintenance Insurance [facility] Care Teams User Interface Developer Relationship Specialty Start Date End Date Donato Flynn MD [address] [place] [address] Dr [address] [place], [place] PCP - General 05/09/23
== END 2024-08-08 12:22 | disposition home or self-care (01) ==
LOC: HO.HWS 11:29
PROVIDERS: PCP Internal Medicine; Visit Provider Obstetrics & Gynecology
DX: Z01.419 Encounter for gynecological examination (general) (routine) without abnormal findings (principal)
CPT/HCPCS: 99396; 99459

== ENCOUNTER → 2024-08-08 11:29 | Outpatient (BNVA) | payer OTHER, SELFPAY | PROVIDERS: PCP Internal Medicine; Visit Provider Obstetrics & Gynecology ==

== ENCOUNTER 2024-10-22 10:54 | Outpatient (REF) | payer OTHER, SELFPAY ==
[2024-10-22 11:10] LABS: MANUAL DIFF FLAG NO
--- OUTSIDE RECORDS SUMMARY | 2024-10-22 11:52 | XMS_ITS | Clinical Summary ---
Author Organization [facility] Address [address] [place] [address] Care Team Providers Care Assembler Knife Name Role Phone Unavailable Primary Care Provider [...] 2021 Fecal DNA 2021 Flexible Sigmoidoscopy 2021 Hbi-VHCVP-09 ( season) 2023 07/03/2021, 07/30/2020, 07/02/2020 Alcohol and Drug Screen 04/18/2024 Depression Annual Screen 04/18/2024 Imm-Influenza (Season Ended) 2024 Cervical Ablation/Cold-Knife Conization Discontinued Cervical Cryotherapy Discontinued Colposcopy Discontinued Endometrial Biopsy Discontinued Excision/Leep Discontinued HPV Genotyping Discontinued Vaginal Pap Discontinued Vulvoscopy Discontinued Insurance [employer] Member Subscriber Plan / Payer (Ef fective 2020-Present) Name:Mercedez Nicole Relation to Subscriber:Self Name:Mercedez Nicole Payer ID:[id number] Group ID:Not on file Type:Medicaid Address: [facility] [address] [place] [address]
--- OUTSIDE RECORDS SUMMARY | 2024-10-22 11:52 | XMS_ITS | Clinical Summary ---
Author Organization [facility] Address [address] [place] [address] Phone Care Team Providers Care Contract Administration Specialist Name Role Phone Donato Flynn MD Primary Care Provider Allergies No known active allergies Medications cholecalciferol [...] Atopic dermatitis 06/28/2019 Bursitis 06/28/2019 Fibromyalgia 06/28/2019 Encounters Date Type Department Care Team Description 08/28/2024 2:45 PM EDT - 08/28/2024 11:59 PM EDT Hospital [facility] at [address] [address] Encounter for screening mammogram for breast cancer Discharge Disposition: Home or Self Care from Last 3 Months Surgical History Surgery Date Site/Laterality Comments HAND SURGERY Left PROCEDURE: HISTORICAL HAND SURGERY; COMMENT: left eCTR about 8 years ago Medical History Medical History Date Comments Atopic dermatitis DX:Atopic derm atitis Social History Tobacco Use Types Packs/Day Years Used Date Smoking Tobacco: Never Smokeless Tobacco: Never Alcohol Use Standard Drinks/Week Comments Yes 0 (1 standard drink = 0.6 oz pur e alcohol) Comments No Sex and Gender Information Value Date Recorded Sex Assigned at Not on file Legal Sex Female 6:51 PM EST Gender Identity Not on file Sexual Orientation Not on file Obstetrics History Para Term AB IAB SAB Ectopic Multiple Livin g Live Births 2 Last Filed Vital Signs Vital Sign Reading Time Taken Comments Blood Pressure 109/80 12/30/2023 11:31 AM EDT Pulse 84 12/30/2023 11:31 AM EDT Temperature - - Respiratory Rate - - Oxygen Saturation - - Inhaled Oxygen Concentration - - Weight 80.7 kg (178 lb) 08/28/2024 3:02 PM EDT Height 162.6 cm (5' 4 ) 08/28/2024 3:02 PM EDT Body Mass Index 30.55 08/28/2024 3:02 PM EDT Plan of Treatment Health Maintenance Due [...] season) 2023 07/03/2021, 07/30/2020, 07/02/2020 Influenza Vaccine (#1) 2024 Breast Cancer Screening 08/28/2026 08/29/19, 06/22/2023, 05/01/2021, Additional history exists HIB Vaccines Aged Out [...] 20 TO 40 DEGREES #5 IMPROVE RIGHT INSIGHTS ANALYST FROM 10 TO 25 POUNDS LTG INCORPORATE POSTURAL AWARENESS AND NERVE GLIDING INTO DAILY REGIME Procedures Procedure Name Priority Date/Time Associated Diagnosis Comments [facility] MAMMO DIGITAL SCREENING W DAVID BILAT Routine 08/28/2024 3:21 PM EDT Encounter for screening mammogram for breast cancer from Last 3 Months Results * [facility] Mammo Digital Screening w David bilat (08/28/2024 3:21 PM EDT) Anatomical Region Laterality Modality Breast Bilateral Mammography 08/29/2024 7:59 AM EDT Impressions 08/29/2024 8:11 AM EDT No mammographic evidence of malignancy. No suspicious interval change. A negative mammogram in the presence of a clinically suspicious palpable abnormality does not preclude the possibility of malignancy or alter the indications for biopsy. ASSESSMENT: BI-RADS 1: NEGATIVE RECOMMENDATION(S): 1: Routine screening mammogram BILATERAL in 1 year. [facility] location[facility] at [address], [address] -------- FINAL REPORT -------- Dictated By: Danis Mabry Dictated Date: 08/29/2024 07:59 ET Assigned Physician: Danis Mabry Reviewed and Electronically Signed By: Danis Mabry Signed Date: 08/29/2024 08:11 ET Workstation ID: [id number] Transcribed By: Self Edit Transcribed Date: 08/29/2024 07:59 ET Narrative 08/29/2024 8:11 AM EDT EXAM: SCREENING MAMMOGRAPHY, BILATERAL HISTORY: SCREENING. No additional history. COMPARISON: 06/22/23, 05/01/21 TECHNIQUE: Synthesized CC and MLO projections of each breast. Tomosynthesis of each breast in the CC and MLO projections. ADDITIONAL IMAGING: None Computer-aided detection was employed with the [employer] 3-D. TISSUE DENSITY: There are scattered areas of fibroglandular density. (BI-RADS category B) FINDINGS: RIGHT BREAST: No suspicious mass. No suspicious calcification. No distortion. No additional suspicious right breast findings LEFT BREAST: No suspicious mass. No suspicious calcification. No distortion. No additional suspicious left breast findings Procedure Note Danis Mabry MD - 08/29/2024 EXAM: SCREENING MAMMOGRAPHY, BILATERAL HISTORY: SCREENING. No additional history. COMPARISON: 06/22/23, 05/01/21 TECHNIQUE: Synthesized CC and MLO projections of each breast.Tomosynthesis of each breast in the CC and MLO projections. ADDITIONAL IMAGING: None Computer-aided detection was employed with the [employer] AI 3-D. TISSUE DENSITY: There are scattered areas of fibroglandular density.(BI-RADS category B) FINDINGS: RIGHT BREAST: No suspicious mass. No suspicious calcification. No distortion. Noadditional suspicious right breast findings LEFT BREAST: No suspicious mass. No suspicious calcification. No distortion. Noadditional suspicious left breast findings IMPRESSION: No mammographic evidence of malignancy. No suspicious interval change. A negative mammogram in the presence of a clinically suspicious palpableabnormality does not preclude the possibility of malignancy or alter theindications for biopsy. ASSESSMENT: BI-RADS 1: NEGATIVE RECOMMENDATION(S): 1: Routine screening mammogram BILATERAL in 1 year. [facility] location[facility] at [address], [address] -------- FINAL REPORT -------- Dictated By: Danis Mabry Dictated Date: 08/29/2024 07:59 ET Assigned Physician: Danis Mabry Reviewed and Electronically Signed By: Danis Mabry Signed Date: 08/29/2024 08:11 ET Workstation ID: [id number] Transcribed By: Self Edit Transcribed Date: 08/29/2024 07:59 ET us Self Referral Sppl IMG BI PROCEDURES Final Resul t from Last 3 Months Insurance [facility] Care Teams Contract Administration Specialist Relationship Specialty Start Date End Date Donato Flynn MD [address] [place], [place] PCP - General 05/09/23
[2024-10-22 11:57] LABS: Hematocrit 38.8 % (37.0-47.0); Hemoglobin 13.3 g/dl (12.0-16.0); Imm Gran Abs Auto 0.02 X10*3/uL (0.00-0.03); Imm Gran Pct Auto 0.3 % (0.0-0.4); Lymphocytes Absolute Auto 2.5 X10*3/uL (1.2-4.9); Mean Corpuscular HGB Conc 34.3 g/dl (31.0-35.0); Mean Corpuscular Hemoglobin 29.8 pg (27.0-33.0); Mean Corpuscular Volume 87.0 fL (80.0-98.0); NRBC Abs Auto 0.000 X10*3/uL (0.0-0.012); NRBC Pct Auto 0.0 /100WBC (0.0-0.2); Platelet Count 321 X10*3/uL (160-400); Red Blood Count 4.46 X10*6/uL (4.20-5.50); White Blood Count 7.9 X10*3/uL (4.8-10.8)
[2024-10-22 12:17] LABS: Appearance Urine Clear; Glucose Urine UA Negative (Negative); PH 8.5 (5.0-9.0); Specific Gravity - Urine 1.020 (1.005-1.025)
[2024-10-22 12:52] LABS: Hemoglobin A1C 110.6235 umol/L; Total Hemoglobin (HGBA1C) 3490.7974 umol/L
[2024-10-22 13:46] LABS: Alanine Aminotransferase 22 U/L (0-31); Albumin Level 4.1 g/dL (3.5-5.0); Alkaline Phosphatase 70 U/L (39-117); Anion Gap 11 (12-20); Aspartate Amino Transferase 23 U/L (5-31); Blood Urea Nitrogen 12 mg/dL (9-16); Calcium 8.7 mg/dL (8.4-10.2); Carbon Dioxide 24 mmol/L (22-29); Chloride 108 mmol/L (96-108); Cholesterol 165 mg/dL (<200); Estimated Glomerular Filt Rate > 60; HDL Cholesterol 41 mg/dL (>40); Potassium 3.9 mmol/L (3.3-5.1); Sodium 139 mmol/L (135-145); Total Protein 6.8 g/dL (6.5-8.0); Triglycerides 107 mg/dL (<150)
== END 2024-10-22 10:55 | disposition home or self-care (01) ==
LOC: HO.LAB 10:54
PROVIDERS: PCP Internal Medicine; Visit Provider Internal Medicine
DX: Z00.00 Encounter for general adult medical examination without abnormal findings (principal); E78.00 Pure hypercholesterolemia, unspecified; R30.0 Dysuria; R73.01 Impaired fasting glucose; R35.0 Frequency of micturition; D50.9 Iron deficiency anemia, unspecified; M79.7 Fibromyalgia; G62.9 Polyneuropathy, unspecified; D17.0 Benign lipomatous neoplasm of skin and subcutaneous tissue of head, face and neck; G56.01 Carpal tunnel syndrome, right upper limb; G43.709 Chronic migraine without aura, not intractable, without status migrainosus; N20.0 Calculus of kidney; E66.9 Obesity, unspecified; Z68.30 Body mass index [BMI] 30.0-30.9, adult; E55.9 Vitamin D deficiency, unspecified; Z71.3 Dietary counseling and surveillance
CPT/HCPCS: 36415; 80053; 80061; 81003; 82306; 83036; 84443; 85025

== ENCOUNTER 2024-10-22 17:00 | Outpatient (AMB) | payer OTHER, SELFPAY ==
--- NOTE | 2024-10-22 17:17 | MHC.PC.OV ---
Vital Signs 10/22/24 17:19 Height 5 ft 4 in Weight 178 lb 8 oz BMI 30.6 BP 110/66 Blood Pressure Location Lt brachial Position Sitting Pulse 101 H Pulse Source Pulse Oximeter Pulse Oximetry (%) 96 Oxygen Delivery Method Room Air Intake Visit Reasons: 6 month f/u Assisted Living Executive Director Required: No Accompanied by: Self / Same As Patient Allergies pregabalin Allergy (Unknown, Verified 10/22/24 17:29) visual hallucinations Medication List - Last Reconciled 10/22/24 by Donato Flynn MD cholecalciferol (vitamin D3) 50 mcg PO DAILY 90 days ferrous sulfate 325 mg PO BID folic acid 1 mg PO DAILY gabapentin 300 mg PO TID 30 days ibuprofen 800 mg PO Q6H PRN 30 days sumatriptan succinate 25 mg PO Q2-4H PRN 30 days tramadol 50 mg PO Q8H PRN 30 days Tobacco use date assessed: 05/07/24 Dental Screening Dental Screen Date: 05/07/24 HPI 6 month f/u HPI Details Patient comes in today for her follow-up visit States that she feels okay She denies any headaches or dizziness Denies any chest pains, no shortness of breath No nausea/vomiting, no abdominal pain No change in bowel habits noted She had her follow-up labs done earlier today - to discuss her results Adds that she has a large lump on the back of her neck, which she feels has gotten bigger lately and would like to have it removed if possible She also needs her Tramadol Rx refilled today PFSH Medical History (Updated 10/29/24 @ 05:15 by Donato Flynn MD) Annual physical exam Vitamin D deficiency Well woman exam Colon cancer screening Bacterial vaginosis Injury of great toenail Renal calculus, bilateral Obesity (BMI 30-39.9) Anemia Nephronophthisis-like nepropathy type 1 Migraines Fibromyalgia Surgical History Hx of bilateral salpingectomy (~05/27/22) History of laparoscopy-assisted vaginal hysterectomy (~05/27/22) History of nephrolithiasis History of tubal ligation History of carpal tunnel release History of abdominoplasty Family History Father Cirrhosis Liver failure Mother Hyperlipidemia Hypertension Maternal Grandfather CVD (cardiovascular disease) Social History Housing: House Alcohol intake: current Alcohol intake frequency: holidays/special occasions only Patient Tobacco Use Status: Never used Tobacco e-Cigarette/Vaping Use: Never Used Second Hand Smoke Exposure: No service: No Current occupational status: employed 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 Depression Screening Interpretation: Positive Depression Screening Follow-up: Existing condition and Follow-up Visit Requested Depression Screening Done: Yes Source: Developed by Drs. Ja Pop, Ty Deluna and colleagues, with an educational robert from [employer]. Thrive Questionnaire Date Thrive assessed: 05/07/24 I am a: Patient What is your living situation today?: I have a steady place to live Within the past 12 months, did the food you bought not last and you didn't have the money to get more?: I choose not to answer this question Within the past 12 months, did you worry whether your food would run out before you got money to buy more?: Never true Do you have trouble paying for medicines?: No Do you have trouble getting transportation to medical appointments?: No Do you have trouble paying your heating and electricity bill?: No Do you have trouble taking care of your child, family member or friend?: No Do you have trouble with day-to-day activities such as bathing, preparing meals, shopping, managing finances, etc.?: No Are you currently unemployed and looking for a job?: No Are you interested in more education?: No Please select the resources that you would like help with: None Currently or been in a relationship where the following occur: I choose not to answer THRIVE Score: 0 SHAMIKA-7 AMB Questionnaire SHAMIKA-7 Date SHAMIKA - 7 assessed: 05/07/24 Source: Developed by Drs. Ja Pop, Virgie Oneill, Ty Sanchez and colleagues, with an educational robert from [employer]. Review of Systems Const Denies chills, Denies fatigue, Denies fever(s) and Denies headache(s) ENT Denies dysphagia, Denies dizziness, Denies headache(s), Denies neck pain and Denies odynophagia Card Denies chest pain, Denies rapid heart rate, Denies irregular heart rhythm, Denies palpitations and Denies dyspnea Resp Denies chest congestion, Denies cough and Denies dyspnea GI Denies abdominal pain, Denies constipation, Denies dysphagia, Denies heartburn, Denies diarrhea, Denies nausea, Denies odynophagia and Denies vomiting Denies difficulty voiding, Denies nocturia, Denies dysuria and Denies urinary urgency Musc Denies back pain, Reports myalgias (diffuse), Reports arthralgias (involving multiple joints) and Denies neck pain Skin/Breast Details: (+) large lump on the back of her neck Denies rash Neuro Denies dizziness, Denies headache(s) and Denies paresthesias Psych Denies anxiety and Denies depression Endo Denies fatigue and Denies palpitations Adonay/Lymph Denies easy bruising Physical exam (Primary Care) Vital Signs: Last Vital Signs Pulse 101 H 10/22/24 17:19 BP 110/66 10/22/24 17:19 Pulse Ox 96 10/22/24 17:19 Oxygen Delivery Method Room Air 10/22/24 17:19 BMI result Body Mass Index 30.6 Tobacco/Smoking Status: Tobacco use Status Tobacco use date assessed 05/07/24 10/22/24 17:17 Patient Tobacco Use Status Never used Tobacco 10/22/24 17:17 e-Cigarette/Vaping Use Never Used 10/22/24 17:17 Depression Screening Interpretation: Positive Depression Screening Follow-up: Existing condition and Follow-up Visit Requested Thrive Assessment: Date of Thrive Assessment Date Thrive assessed 05/07/24 10/22/24 17:17 Currently or been in a relationship where the following occur: I choose not to answer Const General: no acute distress and alert HENMT Ears: TM's normal bilaterally and EAC's normal Throat: Yes posterior oropharynx normal and Yes tonsils normal (no TP congestion) Neck Other: (+) large palpable lipoma on the back of her neck Neck: Yes supple and No lymphadenopathy Thyroid: Thyroid normal Resp Auscultation: clear to auscultation bilaterally, no rales and no wheezes Cardio Rate: regular rate Rhythm: regular rhythm Heart sounds: no murmurs GI Palpation (GI): Soft to palpation and nontender Auscultation: normal bowel sounds General: Yes no CVA tenderness Back/Spine/Pelvis Back: no CVA tenderness Thoracic/Lumbar Spine: thoracic and lumbar spine normal to inspection Skin Rashes: no rashes Extrem General: Yes no clubbing, cyanosis or edema Results Reviewed Results Reviewed: Laboratory Tests 03/02/24 03/02/24 10/22/24 10:51 10:55 11:06 WBC 7.7 Hgb 13.2 Hct 38.0 Plt Count 340 Sodium 136 Potassium 4.3 Creatinine 0.64 Estimated GFR > 60 Random Glucose 79 Fasting Glucose Hemoglobin A1c % Calcium 9.4 AST 21 ALT 23 Triglycerides Cholesterol LDL Cholesterol, Calc HDL Cholesterol 25-OH Vitamin D Total 37.3 TSH 1.28 Ur Specific [place] 1.020 1.020 Urine Protein Negative Negative Urine Glucose (UA) Negative Negative Urine Blood Trace H Negative Urine Nitrite Negative Negative Ur Leukocyte Esterase Negative Negative 10/22/24 11:09 WBC 7.9 Hgb 13.3 Hct 38.8 Plt Count 321 Sodium 139 Potassium 3.9 Creatinine 0.64 Estimated GFR > 60 Random Glucose Fasting Glucose 81 Hemoglobin A1c % 5.1 Calcium 8.7 D AST 23 ALT 22 Triglycerides 107 Cholesterol 165 LDL Cholesterol, Calc 103 H HDL Cholesterol 41 25-OH Vitamin D Total 36.0 TSH 1.12 Ur Specific [place] Urine Protein Urine Glucose (UA) Urine Blood Urine Nitrite Ur Leukocyte Esterase Coding Level of Care Code Est Pt Level 4 (79143) Diagnoses Fibromyalgia M79.7 Arthralgia, unspecified joint M25.50 Joint pain location: unspecified Peripheral polyneuropathy G62.9 Peripheral neuropathy type: polyneuropathy, unspecified 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 Lipoma location: neck Carpal tunnel syndrome of right wrist G56.01 Iron deficiency anemia, unspecified iron deficiency anemia type D50.9 Anemia type: iron deficiency Iron deficiency anemia type: unspecified iron deficiency Chronic migraine without aura without status migrainosus, not intractable G43.709 Migraine type: chronic without aura Status migrainosus presence: without status migrainosus Intractability: not intractable Vitamin D deficiency E55.9 Renal calculus, bilateral N20.0 Obesity (BMI 30-39.9) E66.9 Assessment & Plan Assessment & Plan (1) Fibromyalgia: Code(s): M79.7 - Fibromyalgia Category: Medical Plan: Patient is again encouraged on increased physical activity and regular exercise to help manage her fibromyalgia symptoms [place] [facility] [place] (2) Arthralgia: Comment: involving multiple joints Code(s): M25.50 - Pain in unspecified joint Category: Medical Qualifiers: Joint pain location: unspecified Qualified Code(s): M25.50 - Pain in unspecified joint Plan: Continue Tramadol 50 mg TID PRN for pain - Rx refilled Follow-up with rheumatology as scheduled (3) Peripheral neuropathy: Code(s): G62.9 - Polyneuropathy, unspecified Category: Medical Qualifiers: Peripheral neuropathy type: polyneuropathy, unspecified Qualified Code(s): G62.9 - Polyneuropathy, unspecified Plan: EMG and NCV done back in May 2023 revealed (+) mild peripheral neuropathy affecting some sensory components in feet and legs. Motor nerves are intact Continue Gabapentin 300 mg TID (4) Lipoma: Code(s): D17.9 - Benign lipomatous neoplasm, unspecified Category: Medical Qualifiers: Lipoma location: neck Qualified Code(s): D17.0 - Benign lipomatous neoplasm of skin and subcutaneous tissue of head, face and neck Plan: Will refer her to surgery for further evaluation and consideration for excision of her large lipoma lesion on the back of her neck (5) Carpal tunnel syndrome of right wrist: Comment: S/P left carpal tunnel surgery done by Dr. Jackson back in 2016 Code(s): G56.01 - Carpal tunnel syndrome, right upper limb Category: Medical Plan: S/P right carpal tunnel release/surgery with Dr. Jackson in December 2023 Follow up with orthopedics as scheduled (6) Anemia: Code(s): D64.9 - Anemia, unspecified Category: Medical Qualifiers: Anemia type: iron deficiency Iron deficiency anemia type: unspecified iron deficiency Qualified Code(s): D50.9 - Iron deficiency anemia, unspecified Plan: Her H/H were normal on her labs done earlier today Continue Ferrous Sulfate 325 mg BID We will continue to monitor her CBC regularly (7) Migraines: Code(s): G43.909 - Migraine, unspecified, not intractable, without status migrainosus Category: Medical Qualifiers: Migraine type: chronic without aura Status migrainosus presence: without status migrainosus Intractability: not intractable Qualified Code(s): G43.709 - Chronic migraine without aura, not intractable, without status migrainosus Plan: Stable Continue Sumatriptan 25 mg PRN (8) Vitamin D deficiency: Code(s): E55.9 - Vitamin D deficiency, unspecified Category: Medical Plan: Continue Vitamin D3 2000 units QD (9) Renal calculus, bilateral: Code(s): N20.0 - Calculus of kidney Category: Medical Plan: Retroperitoneal US done at [facility] on 05/20/21 revealed a tiny 0.2 cm calculus in the midpole of the right kidney and 2 non-obstructing left-sided renal calculiy, the largest in the upper pole measuring 0.8 cm Follow up with urology in [place] (Dr. Carlson) as scheduled (10) Obesity (BMI 30-39.9): Code(s): E66.9 - Obesity, unspecified Category: Medical Plan: Reinforced diet/exercise as tolerated/lose weight Plan To return as scheduled in May 2025 for her next annual physical examination Orders: Orders UA CC w/rflx Micro + Cult 05/11/25 R30.0 - Dysuria, Z00.00 - Encounter for general adult medical examination without abnormal findings Vitamin B12 and Folate 05/11/25 E53.8 - Deficiency of other specified B group vitamins, Z00.00 - Encounter for general adult medical examination without abnormal findings Vitamin D 25-OH Total 05/11/25 E55.9 - Vitamin D deficiency, unspecified, Z00.00 - Encounter for general adult medical examination without abnormal findings Complete Blood Count Auto Diff 05/11/25 D64.9 - Anemia, unspecified, Z00.00 - Encounter for general adult medical examination without abnormal findings Comprehensive [place]. Panel Fast 05/11/25 E78.00 - Pure hypercholesterolemia, unspecified, Z00.00 - Encounter for general adult medical examination without abnormal findings Lipid Panel 05/11/25 E78.00 - Pure hypercholesterolemia, unspecified, Z00.00 - Encounter for general adult medical examination without abnormal findings TSH reflex Free T4 05/11/25 E78.00 - Pure hypercholesterolemia, unspecified, Z00.00 - Encounter for general adult medical examination without abnormal findings Referrals General Surgery Referral D17.1 - Benign lipomatous neoplasm of skin and subcutaneous tissue of trunk Medications: Refilled tramadol 50 mg PO Q8H PRN 90 tabs 0RF pain 30 days
[2024-10-22 17:19] VITALS: BP 110/66; PULSE 101; O2SAT 96; BMI 30.6
== END 2024-10-22 17:38 | disposition home or self-care (01) ==
LOC: HO.HMCH 17:00
PROVIDERS: PCP Internal Medicine; Visit Provider Internal Medicine
DX: M79.7 Fibromyalgia (principal); M25.50 Pain in unspecified joint; E66.9 Obesity, unspecified; Z68.30 Body mass index [BMI] 30.0-30.9, adult; G62.9 Polyneuropathy, unspecified; D17.0 Benign lipomatous neoplasm of skin and subcutaneous tissue of head, face and neck; G56.01 Carpal tunnel syndrome, right upper limb; D50.9 Iron deficiency anemia, unspecified; G43.709 Chronic migraine without aura, not intractable, without status migrainosus; E55.9 Vitamin D deficiency, unspecified; N20.0 Calculus of kidney